=== PATIENT | male | born 1940 | race Caucasian/White ===

== ENCOUNTER 2019-03-11 13:56 | Emergency (ER) | payer MEDICARE ==
[~2019-03-11 13:56] MED LIST: APIX5TAB PO; ATOR40TA71 PO; EZET10TA13 PO; FINA5TAB41 PO; FLUC100T PO; FOLI1TAB82 PO; FURO20TA4 PO; TAMS0.4C32 PO; UBID200C18 PO; VITAMIN D3 PO
[2019-03-11 15:27] LABS: BASOPHILS % (AUTO) 0.5 % (0.0-5.0); EOSINOPHILS % (AUTO) 1.2 % (0.0-8.0); HEMATOCRIT 41.1 % (42-54); LYMPHOCYTES % (AUTO) 19.7 % (21.0-51.0); MEAN CORPUSCULAR HEMOGLOBIN 31.3 pg (27.0-33.0); MEAN CORPUSCULAR HGB CONC 33.1 g/dL (32.0-36.0); MEAN CORPUSCULAR VOLUME 94.7 fL (79-99); MONOCYTES % (AUTO) 6.8 % (3.0-13.0); NEUTROPHILS % (AUTO) 71.6 % (40.0-77.0); PLATELET COUNT (AUTO) 133 K/uL (130-400); RED BLOOD CELL COUNT(AUTO) 4.34 MIL/uL (4.50-6.20); RED CELL DISTRIBUTION WIDTH 13.6 % (11.0-15.5)
[2019-03-11 15:33] LABS: CREATININE 1.9 mg/dL (0.5-1.5); POTASSIUM 4.5 mmol/L (3.5-5.1)
[2019-03-11 15:49] LABS: B-TYPE NATRIURETIC PEPTIDE 250 pg/mL (0-100)
== END 2019-03-11 17:21 | disposition home or self-care (01) ==
LOC: EDH 13:56
DX: R00.8 Other abnormalities of heart beat (principal); I25.10 Atherosclerotic heart disease of native coronary artery without angina pectoris; I10 Essential (primary) hypertension; E78.5 Hyperlipidemia, unspecified; Z90.49 Acquired absence of other specified parts of digestive tract; Z98.890 Other specified postprocedural states
CPT/HCPCS: 36415; 71046; 80048; 82550; 83735; 83880; 84484; 85025; 93005

== ENCOUNTER → 2019-05-03 | Outpatient (CLI) | payer MEDICARE | END | disposition home or self-care (01) | LOC: SHCH 13:29 | PROVIDERS: ATTEND Internal Medicine Cardiovascular Disease | DX: I08.3 Combined rheumatic disorders of mitral, aortic and tricuspid valves (principal); I50.9 Heart failure, unspecified | CPT/HCPCS: 93306; 93356 ==

== ENCOUNTER → 2019-12-27 | Outpatient (CLI) | payer MEDICARE | END | disposition home or self-care (01) | LOC: SLP 20:27 | PROVIDERS: ATTEND Internal Medicine Cardiovascular Disease | DX: G47.33 Obstructive sleep apnea (adult) (pediatric) (principal); R53.82 Chronic fatigue, unspecified | CPT/HCPCS: 95810 ==

== ENCOUNTER → 2020-01-08 | Outpatient (CLI) | payer MEDICARE | END | disposition home or self-care (01) | LOC: SLP 20:27 | PROVIDERS: ATTEND Internal Medicine Cardiovascular Disease | DX: R53.82 Chronic fatigue, unspecified (principal); G47.31 Primary central sleep apnea | CPT/HCPCS: 95811 ==

== ENCOUNTER 2020-06-04 14:25 | Emergency (ER) | payer MEDICARE ==
[2020-06-04] MEDS ORDERED: DIATR MEGLU/DIATRIZOATE SODIUM 30 ML BOTTLE ONE (15:21)
== END 2020-06-04 16:15 | disposition home or self-care (01) ==
LOC: EDH 14:25
DX: K94.23 Gastrostomy malfunction (principal); I11.0 Hypertensive heart disease with heart failure; I50.9 Heart failure, unspecified; E78.5 Hyperlipidemia, unspecified; I25.10 Atherosclerotic heart disease of native coronary artery without angina pectoris; Z90.49 Acquired absence of other specified parts of digestive tract; Z98.890 Other specified postprocedural states; Z87.891 Personal history of nicotine dependence; Z95.810 Presence of automatic (implantable) cardiac defibrillator
CPT/HCPCS: 43762; 74018; 99284; Q9963

== ENCOUNTER 2021-05-22 06:58 | Inpatient (IN) | payer MEDICARE ==
[~2021-05-22] VITALS: Ht 190.5 cm; Wt 86.4 kg
[2021-05-22] MEDS ORDERED: KETOROLAC 30MG VIAL (30MG/ML) ONE (07:23)
[2021-05-22] MEDS ORDERED: 0.9%NACL 1000ML 1,000 ML IV ONE (07:24)
[2021-05-22] MEDS ORDERED: LABETALOL 20MG SYG IV ONE (07:24)
[2021-05-22 07:27] LABS: HEMATOCRIT 43.7 % (42-54); MEAN CORPUSCULAR HEMOGLOBIN 29.8 pg (27.0-33.0); MEAN CORPUSCULAR HGB CONC 32.5 g/dL (32.0-36.0); MEAN CORPUSCULAR VOLUME 91.6 fL (79-99); PLATELET COUNT (AUTO) 115 K/uL (130-400); RED BLOOD CELL COUNT(AUTO) 4.77 MIL/uL (4.50-6.20); RED CELL DISTRIBUTION WIDTH 14.7 % (11.0-15.5); WHITE BLOOD COUNT (AUTO) 10.4 K/uL (4.8-10.8)
[2021-05-22 07:43] LABS: BASOPHILS % (AUTO) 0.4 % (0.0-5.0); EOSINOPHILS % (AUTO) 1.1 % (0.0-8.0); LYMPHOCYTES % (AUTO) 34.7 % (21.0-51.0); MONOCYTES % (AUTO) 6.9 % (3.0-13.0); NEUTROPHILS % (AUTO) 56.5 % (40.0-77.0)
[2021-05-22] MEDS ORDERED: LIDOCAINE HCL 2% JELLY 5 ML ONE (07:43)
[2021-05-22 07:47] LABS: ALBUMIN 4.1 g/dL (3.5-5.0); BILIRUBIN,TOTAL 0.7 mg/dL (0.2-1.0); CREATININE 2.2 mg/dL (0.5-1.5); POTASSIUM 5.2 mmol/L (3.5-5.1); TOTAL PROTEIN, SERUM 7.8 g/dL (6.0-8.3)
[2021-05-22 08:17] LABS: APPEARANCE,URINE TURBID (CLEAR); BILIRUBIN,URINE LARGE (NEGATIVE); COLOR,URINE RED (YELLOW); GLUCOSE, URINE (UA) 500 mg/dL (NEGATIVE); KETONES,URINE >=80 mg/dL (NEGATIVE); LEUKOCYTE ESTERASE ,URINE LARGE (NEGATIVE); NITRATE,URINE POSITIVE (NEGATIVE); OCCULT BLOOD,URINE LARGE (NEGATIVE); PROTEIN,URINE >=300 mg/dL (NEGATIVE); UROBILINOGEN,URINE >=8.0 mg/dL (0.2-1.0)
[2021-05-22 08:27] LABS: BACTERIA,URINE Few /HPF (None Seen); RBC,URINE TNTC /HPF (0-1); SQUAMOUS EPITHELIAL CELL,UR 0-2 /HPF (0-2)
[2021-05-22] MEDS ORDERED: ZOSYN 3.375GM +NS 50ML IV SCH (11:00)
[2021-05-22] MEDS ORDERED: 0.9%NACL 50ML 50 ML IV ONE (11:25)
[2021-05-22 11:26] LABS: HEMATOCRIT 40.6 % (42-54)
[2021-05-22] MEDS ORDERED: ACETAMINOPHEN 325 MG TAB PO PRN (11:30)
[2021-05-22] MEDS ORDERED: ONDANSETRON 4MG INJ IVP PRN (11:30)
[2021-05-22] MEDS ORDERED: CEFTRIAXONE 1G VIAL IVP SCH (11:30)
[2021-05-22 12:53] LABS: CREATININE,URINE RANDOM 29 mg/dL (30-135); SODIUM,URINE RANDOM 91 mmol/l (40-220)
[2021-05-22 13:05] VITALS: BP 137/63
[2021-05-22 15:10] VITALS: BP 124/103
[2021-05-22] MEDS: INSULIN HUMULIN R 100 UNIT/ML 3ML SQ SCH ×2 (16:30→21:00)
[2021-05-22] MEDS ORDERED: SULF1TAB42 PO (18:31)
[2021-05-22] MEDS ORDERED: METO-408 PO (18:31)
[2021-05-22] MEDS ORDERED: SACU1TAB PO (18:31)
[2021-05-22] MEDS ORDERED: ASPI-1443 PO (18:31)
[2021-05-22] MEDS ORDERED: OXYB5TAB15 PO (18:31)
[2021-05-22] MEDS: MORPHINE 2 MG SYG IVP PRN (18:46)
[2021-05-22 19:59] VITALS: BP 152/91
[2021-05-22 20:01] VITALS: BP 172/82
[2021-05-22 23:28] VITALS: BP 116/55
[2021-05-23] MEDS: ZOSYN 3.375GM +NS 50ML IV SCH ×4 (01:31→20:56)
[2021-05-23] MEDS: MORPHINE 2 MG SYG IVP PRN ×2 (01:31→15:33)
[2021-05-23 03:42] VITALS: BP 146/72
[2021-05-23] MEDS: INSULIN HUMULIN R 100 UNIT/ML 3ML SQ SCH ×4 (06:32→20:55)
[2021-05-23 07:59] VITALS: BP 101/51
[2021-05-23] MEDS: METOPROLOL SUCCINATE 50 MG TAB.SR.24H PO SCH ×3 (09:30→20:56)
[2021-05-23] MEDS: SACUBITRIL/VALSARTAN 1 EACH TABLET PO SCH ×2 (09:30→21:30)
[2021-05-23 09:31] LABS: HEMATOCRIT 39.4 % (42-54); MEAN CORPUSCULAR HEMOGLOBIN 30.5 pg (27.0-33.0); MEAN CORPUSCULAR HGB CONC 32.5 g/dL (32.0-36.0); MEAN CORPUSCULAR VOLUME 93.8 fL (79-99); RED BLOOD CELL COUNT(AUTO) 4.2 MIL/uL (4.50-6.20); RED CELL DISTRIBUTION WIDTH 14.8 % (11.0-15.5); WHITE BLOOD COUNT (AUTO) 5.4 K/uL (4.8-10.8)
[2021-05-23 09:56] LABS: CREATININE 2.4 mg/dL (0.5-1.5); POTASSIUM 5.3 mmol/L (3.5-5.1)
[2021-05-23] MEDS: TAMSULOSIN HCL 0.4 MG CAP.ER.24H PO SCH (10:46)
[2021-05-23 12:44] VITALS: BP 173/74
[2021-05-23 16:00] VITALS: BP 137/76
[2021-05-23 16:07] LABS: HEMATOCRIT 41.1 % (42-54)
[2021-05-23] MEDS ORDERED: MORPHINE 2 MG SYG IM ONE (16:30)
[2021-05-23] MEDS ORDERED: MORPHINE 2 MG SYG IVP SCH (16:30)
[2021-05-23 19:45] VITALS: BP 144/64
[2021-05-23 23:53] VITALS: BP 120/72
[2021-05-24 03:42] VITALS: BP 131/65
[2021-05-24] MEDS: MORPHINE 2 MG SYG IVP PRN ×2 (04:23→15:07)
[2021-05-24 04:56] LABS: HEMATOCRIT 38.4 % (42-54); MEAN CORPUSCULAR HEMOGLOBIN 30.1 pg (27.0-33.0); MEAN CORPUSCULAR HGB CONC 32.8 g/dL (32.0-36.0); MEAN CORPUSCULAR VOLUME 91.6 fL (79-99); RED BLOOD CELL COUNT(AUTO) 4.19 MIL/uL (4.50-6.20); RED CELL DISTRIBUTION WIDTH 14.8 % (11.0-15.5); WHITE BLOOD COUNT (AUTO) 8.2 K/uL (4.8-10.8)
[2021-05-24] MEDS: ZOSYN 3.375GM +NS 50ML IV SCH ×3 (05:04→20:56)
[2021-05-24 05:08] LABS: CREATININE 2.1 mg/dL (0.5-1.5); MAGNESIUM 2.1 mg/dL (1.80-2.40)
[2021-05-24] MEDS: INSULIN HUMULIN R 100 UNIT/ML 3ML SQ SCH ×4 (06:42→21:00)
[2021-05-24 08:00] VITALS: BP 117/76
[2021-05-24] MEDS: TAMSULOSIN HCL 0.4 MG CAP.ER.24H PO SCH (08:42)
[2021-05-24] MEDS: SACUBITRIL/VALSARTAN 1 EACH TABLET PO SCH ×2 (08:42→20:56)
[2021-05-24] MEDS: ATORVASTATIN 20 MG TABLET PO SCH (08:42)
[2021-05-24] MEDS: METOPROLOL SUCCINATE 50 MG TAB.SR.24H PO SCH ×2 (08:42→20:57)
[2021-05-24 12:00] VITALS: BP_SYST 148; BP_SYST 161; BP_DIAS 66; BP_DIAS 76
[2021-05-24 16:00] VITALS: BP 98/57
[2021-05-24 20:13] VITALS: BP 116/52
[2021-05-24 23:44] VITALS: BP 130/60
[2021-05-25 03:31] VITALS: BP 139/69
[2021-05-25 04:57] LABS: HEMATOCRIT 38.9 % (42-54); MEAN CORPUSCULAR HEMOGLOBIN 30.3 pg (27.0-33.0); MEAN CORPUSCULAR HGB CONC 32.4 g/dL (32.0-36.0); MEAN CORPUSCULAR VOLUME 93.5 fL (79-99); RED BLOOD CELL COUNT(AUTO) 4.16 MIL/uL (4.50-6.20); RED CELL DISTRIBUTION WIDTH 15.1 % (11.0-15.5); WHITE BLOOD COUNT (AUTO) 6.7 K/uL (4.8-10.8)
[2021-05-25 05:03] LABS: CREATININE 2.1 mg/dL (0.5-1.5); POTASSIUM 5.2 mmol/L (3.5-5.1)
[2021-05-25] MEDS: ZOSYN 3.375GM +NS 50ML IV SCH ×2 (05:31→13:26)
[2021-05-25] MEDS: INSULIN HUMULIN R 100 UNIT/ML 3ML SQ SCH ×2 (06:35→10:48)
[2021-05-25 07:37] VITALS: BP 154/77
[2021-05-25] MEDS: ATORVASTATIN 20 MG TABLET PO SCH (08:33)
[2021-05-25] MEDS: SACUBITRIL/VALSARTAN 1 EACH TABLET PO SCH (08:33)
[2021-05-25] MEDS: METOPROLOL SUCCINATE 50 MG TAB.SR.24H PO SCH (08:33)
[2021-05-25] MEDS: TAMSULOSIN HCL 0.4 MG CAP.ER.24H PO SCH (08:33)
[2021-05-25] MEDS ORDERED: KAYEXALATE 15GM/60ML PO ONE (09:30)
[2021-05-25 10:47] VITALS: BP 136/81
[2021-05-25] MEDS ORDERED: ATORVASTATIN 20 MG TABLET PO SCH (21:00)
[2021-05-25] MEDS ORDERED: SACUBITRIL/VALSARTAN 1 EACH TABLET PO SCH (21:00)
[2021-05-25] MEDS ORDERED: TAMSULOSIN HCL 0.4 MG CAP.ER.24H PO SCH (21:00)
[2021-05-25] MEDS ORDERED: METOPROLOL SUCCINATE 50 MG TAB.SR.24H PO SCH (21:00)
[2021-05-26] MEDS ORDERED: ASPIRIN 81 MG EC TAB PO SCH (09:00)
[2021-05-26] MEDS ORDERED: EZETIMIBE 10 MG TAB PO SCH (09:00)
[2021-05-26] MEDS ORDERED: Vitamin B Complex/Vit C/Folic Acid PO SCH (09:00)
[2021-05-26] MEDS ORDERED: OXYBUTYNIN CHLORIDE 5 MG TABLET PO SCH (09:00)
== END 2021-05-25 17:00 | disposition home or self-care (01) | DRG 690 ==
LOC: EDH 06:58 → EDHIP 10:42 → 3AH 13:02
PROVIDERS: ADMIT Internal Medicine Infectious Disease; ATTEND Internal Medicine Infectious Disease
DX: N39.0 Urinary tract infection, site not specified (principal); I16.1 Hypertensive emergency; I50.22 Chronic systolic (congestive) heart failure; E87.1 Hypo-osmolality and hyponatremia; I13.0 Hypertensive heart and chronic kidney disease with heart failure and stage 1 through stage 4 chronic kidney disease, or unspecified chronic kidney disease; N18.4 Chronic kidney disease, stage 4 (severe); R31.0 Gross hematuria; I25.5 Ischemic cardiomyopathy; E78.5 Hyperlipidemia, unspecified; N26.1 Atrophy of kidney (terminal); K21.9 Gastro-esophageal reflux disease without esophagitis; I48.91 Unspecified atrial fibrillation; I25.10 Atherosclerotic heart disease of native coronary artery without angina pectoris; I73.9 Peripheral vascular disease, unspecified; N40.0 Benign prostatic hyperplasia without lower urinary tract symptoms; M51.36 Other intervertebral disc degeneration, lumbar region; K80.20 Calculus of gallbladder without cholecystitis without obstruction; I71.4 Abdominal aortic aneurysm, without rupture; K59.00 Constipation, unspecified; K57.90 Diverticulosis of intestine, part unspecified, without perforation or abscess without bleeding; I72.3 Aneurysm of iliac artery; E87.5 Hyperkalemia; E78.00 Pure hypercholesterolemia, unspecified; Z79.82 Long term (current) use of aspirin; I25.2 Old myocardial infarction; Z87.440 Personal history of urinary (tract) infections; Z87.891 Personal history of nicotine dependence; Z95.1 Presence of aortocoronary bypass graft; Z95.0 Presence of cardiac pacemaker; Z95.5 Presence of coronary angioplasty implant and graft; Z85.820 Personal history of malignant melanoma of skin; Z86.79 Personal history of other diseases of the circulatory system; Z87.19 Personal history of other diseases of the digestive system; Z86.73 Personal history of transient ischemic attack (TIA), and cerebral infarction without residual deficits
CPT/HCPCS: 36415; 74018; 74176; 80048; 80053; 81001; 82570; 82948; 83735; 84300; 85014; 85018; 85025; 85027; 86850; 86900; 86901; 87088; 93005; 99291; G0378; J0696; J1885; J2543; J7030

== ENCOUNTER 2021-12-28 10:08 | Emergency (ER) | payer MEDICARE ==
[~2021-12-28] VITALS: Ht 190.5 cm; Wt 94.8 kg
[~2021-12-28 10:08] MED LIST changes: -APIX5TAB PO; +ASPI-1443 PO; -FINA5TAB41 PO; -FLUC100T PO; -FURO20TA4 PO; +METO-408 PO; +OXYB5TAB15 PO; +SACU1TAB PO; -UBID200C18 PO; -VITAMIN D3 PO
[2021-12-28 11:08] VITALS: BP 139/57
[2021-12-28 11:35] LABS: BASOPHILS % (AUTO) 0.2 % (0.0-5.0); EOSINOPHILS % (AUTO) 0.2 % (0.0-8.0); HEMATOCRIT 29.4 % (42-54); MEAN CORPUSCULAR HEMOGLOBIN 31.4 pg (27.0-33.0); MEAN CORPUSCULAR VOLUME 95.1 fL (79-99); MONOCYTES % (AUTO) 3.4 % (3.0-13.0); NEUTROPHILS % (AUTO) 87.2 % (40.0-77.0); PLATELET COUNT (AUTO) 126 K/uL (130-400); RED BLOOD CELL COUNT(AUTO) 3.09 MIL/uL (4.50-6.20); RED CELL DISTRIBUTION WIDTH 15.6 % (11.0-15.5); WHITE BLOOD COUNT (AUTO) 10.2 K/uL (4.8-10.8)
[2021-12-28 11:40] LABS: CREATININE 1.8 mg/dL (0.5-1.5); POTASSIUM 4.3 mmol/L (3.5-5.1)
[2021-12-28 11:45] LABS: ALBUMIN 3.2 g/dL (3.5-5.0)
[2021-12-28 12:08] LABS: INR 1.24 (0.85-1.15); PROTHROMBIN TIME 13.4 SEC (9.6-11.6)
[2021-12-28 12:09] LABS: PARTIAL THROMBOPLASTIN TIME 22.7 SEC (26.3-35.5)
== END 2021-12-28 12:31 | disposition home or self-care (01) ==
LOC: EDH 10:08
DX: S80.12XA Contusion of left lower leg, initial encounter (principal); E78.00 Pure hypercholesterolemia, unspecified; I10 Essential (primary) hypertension; I25.2 Old myocardial infarction; Z90.89 Acquired absence of other organs; Z98.890 Other specified postprocedural states; Z79.899 Other long term (current) drug therapy; Z79.82 Long term (current) use of aspirin; W22.8XXA Striking against or struck by other objects, initial encounter; Y93.89 Activity, other specified; Y92.89 Other specified places as the place of occurrence of the external cause; Y99.8 Other external cause status
CPT/HCPCS: 36415; 73700; 80053; 85025; 85610; 85730

== ENCOUNTER 2021-12-31 10:51 | Emergency (ER) | payer MEDICARE ==
[2021-12-31] MEDS ORDERED: HYDROCODONE/ACETAMINOPHEN 10/325 MG TAB PO ONE (11:30)
[2021-12-31] MEDS ORDERED: TRAM1TAB2 PO (12:02)
[2021-12-31 12:08] VITALS: BP 135/91
== END 2021-12-31 12:17 | disposition home or self-care (01) ==
LOC: EDH 10:51
DX: S80.12XA Contusion of left lower leg, initial encounter (principal); I10 Essential (primary) hypertension; Z86.73 Personal history of transient ischemic attack (TIA), and cerebral infarction without residual deficits; Z79.82 Long term (current) use of aspirin; Z79.899 Other long term (current) drug therapy; Z98.890 Other specified postprocedural states; W22.8XXA Striking against or struck by other objects, initial encounter; Y93.89 Activity, other specified; Y92.89 Other specified places as the place of occurrence of the external cause; Y99.8 Other external cause status
CPT/HCPCS: 93971

== ENCOUNTER 2022-01-03 10:54 | Inpatient (IN) | payer MEDICARE ==
[~2022-01-03] VITALS: Ht 190.5 cm; Wt 90.7 kg
[~2022-01-03 10:54] MED LIST changes: -ALLO100T PO; -LIDOCAINE HCL 4% LTA SOL 4 ML VIAL TP ONE; -PRED20TA3 PO
[2022-01-03] MEDS ORDERED: BENZONATATE 100 MG CAPSULE PO PRN (11:30)
[2022-01-03] MEDS ORDERED: CEPHALEXIN 500 MG CAPSULE PO SCH (11:30)
[2022-01-03] MEDS ORDERED: MULTIVITAMIN WITH MINERALS TABLET PO SCH (11:30)
[2022-01-03 11:55] LABS: BASOPHILS % (AUTO) 0.1 % (0.0-5.0); EOSINOPHILS % (AUTO) 0.1 % (0.0-8.0); HEMATOCRIT 30.2 % (42-54); MEAN CORPUSCULAR HEMOGLOBIN 31.5 pg (27.0-33.0); MEAN CORPUSCULAR HGB CONC 32.1 g/dL (32.0-36.0); MEAN CORPUSCULAR VOLUME 98.1 fL (79-99); MONOCYTES % (AUTO) 1.9 % (3.0-13.0); NEUTROPHILS % (AUTO) 93.5 % (40.0-77.0); PLATELET COUNT (AUTO) 124 K/uL (130-400); RED BLOOD CELL COUNT(AUTO) 3.08 MIL/uL (4.50-6.20); RED CELL DISTRIBUTION WIDTH 16.8 % (11.0-15.5); WHITE BLOOD COUNT (AUTO) 9.9 K/uL (4.8-10.8)
[2022-01-03 12:02] LABS: CREATININE 1.7 mg/dL (0.5-1.5); POTASSIUM 5.1 mmol/L (3.5-5.1)
[2022-01-03 12:05] LABS: INR 1.13 (0.85-1.15); PROTHROMBIN TIME 12.2 SEC (9.6-11.6)
[2022-01-03 12:06] LABS: PARTIAL THROMBOPLASTIN TIME 23.9 SEC (26.3-35.5)
[2022-01-03 12:07] LABS: ALBUMIN 3.1 g/dL (3.5-5.0); TOTAL PROTEIN, SERUM 6.6 g/dL (6.0-8.3)
[2022-01-03] MEDS ORDERED: VANCOMYCIN PROTOCOL PER PHARMACY IV SCH (16:00)
[2022-01-03 16:40] VITALS: BP 141/78
[2022-01-03] MEDS: CEFEPIME HCL 1 GM VIAL IVP SCH (18:20)
[2022-01-03 20:00] VITALS: BP 131/61
[2022-01-03] MEDS: ATORVASTATIN 40 MG TABLET PO SCH (20:52)
[2022-01-03] MEDS: SACUBITRIL/VALSARTAN 1 EACH TABLET PO SCH (20:52)
[2022-01-04] VITALS (7 sets, daily range): BP systolic 124–156; BP diastolic 46–83
[2022-01-04] MEDS: CEFEPIME HCL 1 GM VIAL IVP SCH ×4 (01:39→23:43)
[2022-01-04 05:18] LABS: BASOPHILS % (AUTO) 0.2 % (0.0-5.0); HEMATOCRIT 26.6 % (42-54); LYMPHOCYTES % (AUTO) 12.8 % (21.0-51.0); MEAN CORPUSCULAR HEMOGLOBIN 31.7 pg (27.0-33.0); MEAN CORPUSCULAR HGB CONC 33.1 g/dL (32.0-36.0); MEAN CORPUSCULAR VOLUME 95.7 fL (79-99); MONOCYTES % (AUTO) 6.5 % (3.0-13.0); NEUTROPHILS % (AUTO) 79.1 % (40.0-77.0); PLATELET COUNT (AUTO) 123 K/uL (130-400); RED BLOOD CELL COUNT(AUTO) 2.78 MIL/uL (4.50-6.20); RED CELL DISTRIBUTION WIDTH 16.5 % (11.0-15.5); WHITE BLOOD COUNT (AUTO) 8.4 K/uL (4.8-10.8)
[2022-01-04 05:32] LABS: INR 1.17 (0.85-1.15); PROTHROMBIN TIME 12.6 SEC (9.6-11.6)
[2022-01-04 05:33] LABS: PARTIAL THROMBOPLASTIN TIME 25.4 SEC (26.3-35.5)
[2022-01-04] MEDS: MORPHINE 2 MG SYG IVP PRN (07:37)
[2022-01-04] MEDS: PREDNISONE 20 MG TABLET PO SCH (08:41)
[2022-01-04] MEDS: SACUBITRIL/VALSARTAN 1 EACH TABLET PO SCH ×2 (08:41→20:33)
[2022-01-04] MEDS: METOPROLOL SUCCINATE 25 MG TAB.SR.24H PO SCH (08:41)
[2022-01-04] MEDS: ALLOPURINOL 100 MG TABLET PO SCH (08:41)
[2022-01-04] MEDS ORDERED: FOLI1TAB82 PO (09:48)
[2022-01-04] MEDS ORDERED: SACU1TAB PO (09:48)
[2022-01-04] MEDS ORDERED: PRED20TA3 PO (09:48)
[2022-01-04] MEDS ORDERED: ALLO100T PO (09:48)
[2022-01-04] MEDS ORDERED: METO-408 PO (09:48)
[2022-01-04] MEDS ORDERED: COMPOUND IV REFRIGERATED 1 EACH IVSOLN MISC PRN (10:30)
[2022-01-04] MEDS: VANCOMYCIN 1.5 GM/250 ML BAG 250 ML IV SCH (11:07)
[2022-01-04] MEDS ORDERED: PHARMACY COMMUNICATION MISC SCH (20:30)
[2022-01-04] MEDS: TAMSULOSIN HCL 0.4 MG CAP.ER.24H PO SCH (20:33)
[2022-01-04] MEDS: ATORVASTATIN 40 MG TABLET PO SCH (20:33)
[2022-01-05] VITALS (7 sets, daily range): BP systolic 127–158; BP diastolic 59–80
[2022-01-05] MEDS: SACUBITRIL/VALSARTAN 1 EACH TABLET PO SCH ×2 (08:37→21:07)
[2022-01-05] MEDS: METOPROLOL SUCCINATE 25 MG TAB.SR.24H PO SCH (08:37)
[2022-01-05] MEDS: PREDNISONE 20 MG TABLET PO SCH (08:37)
[2022-01-05] MEDS: CEFEPIME HCL 1 GM VIAL IVP SCH ×2 (08:37→16:31)
[2022-01-05] MEDS: ALLOPURINOL 100 MG TABLET PO SCH (08:37)
[2022-01-05] MEDS: ENOXAPARIN SODIUM 30 MG/0.3 ML SQ SCH (08:38)
[2022-01-05] MEDS: VANCOMYCIN 1.5 GM/250 ML BAG 250 ML IV SCH (10:07)
[2022-01-05] MEDS: MORPHINE 2 MG SYG IVP PRN ×2 (11:31→22:20)
[2022-01-05] MEDS ORDERED: LACTULOSE 20 GM/30 ML UDCUP PO SCH (19:30)
[2022-01-05] MEDS: ATORVASTATIN 40 MG TABLET PO SCH (21:05)
[2022-01-05] MEDS: TAMSULOSIN HCL 0.4 MG CAP.ER.24H PO SCH (21:05)
[2022-01-06] VITALS (25 sets, daily range): BP systolic 107–158; BP diastolic 34–101
[2022-01-06] MEDS: CEFEPIME HCL 1 GM VIAL IVP SCH ×4 (00:09→23:33)
[2022-01-06] MEDS: MORPHINE 2 MG SYG IVP PRN ×2 (04:31→22:41)
[2022-01-06 05:04] LABS: HEMATOCRIT 28.7 % (42-54); MEAN CORPUSCULAR HEMOGLOBIN 31.4 pg (27.0-33.0); MEAN CORPUSCULAR HGB CONC 33.1 g/dL (32.0-36.0); MEAN CORPUSCULAR VOLUME 94.7 fL (79-99); RED BLOOD CELL COUNT(AUTO) 3.03 MIL/uL (4.50-6.20); RED CELL DISTRIBUTION WIDTH 16.4 % (11.0-15.5); WHITE BLOOD COUNT (AUTO) 9.2 K/uL (4.8-10.8)
[2022-01-06 05:17] LABS: CREATININE 1.5 mg/dL (0.5-1.5); POTASSIUM 4.1 mmol/L (3.5-5.1)
[2022-01-06] MEDS: ENOXAPARIN SODIUM 30 MG/0.3 ML SQ SCH (09:00)
[2022-01-06] MEDS: PREDNISONE 20 MG TABLET PO SCH (09:00)
[2022-01-06] MEDS: ALLOPURINOL 100 MG TABLET PO SCH (09:00)
[2022-01-06] MEDS: METOPROLOL SUCCINATE 25 MG TAB.SR.24H PO SCH (09:27)
[2022-01-06] MEDS: SACUBITRIL/VALSARTAN 1 EACH TABLET PO SCH ×2 (09:27→20:52)
[2022-01-06] MEDS: VANCOMYCIN 1.5 GM/250 ML BAG 250 ML IV SCH (09:32)
[2022-01-06] MEDS ORDERED: KETAMINE 50MG/ML SYRINGE 50 MG/ML DISP.SYRIN IV ONE (10:19)
[2022-01-06] MEDS ORDERED: MIDAZOLAM HCL 1 MG/ML 2ML VIAL ONE (10:58)
[2022-01-06] MEDS ORDERED: FENTANYL CITRATE PF 50 MCG/1 ML 2ML VIAL ONE ×2 (10:58→12:16)
[2022-01-06] MEDS ORDERED: PROPOFOL 10 MG/ML 20ML VIAL IV ONE (11:05)
[2022-01-06] MEDS: ATORVASTATIN 40 MG TABLET PO SCH (20:30)
[2022-01-06] MEDS: TAMSULOSIN HCL 0.4 MG CAP.ER.24H PO SCH (20:30)
[2022-01-06] MEDS: HYDROCODONE/ACETAMINOPHEN 5/325 MG TAB PO PRN (20:31)
[2022-01-07 03:49] VITALS: BP 119/63
[2022-01-07] MEDS: HYDROCODONE/ACETAMINOPHEN 5/325 MG TAB PO PRN (05:33)
[2022-01-07 07:57] VITALS: BP 117/77
[2022-01-07] MEDS: ALLOPURINOL 100 MG TABLET PO SCH (09:50)
[2022-01-07] MEDS: PREDNISONE 20 MG TABLET PO SCH (09:53)
[2022-01-07] MEDS: SACUBITRIL/VALSARTAN 1 EACH TABLET PO SCH ×2 (09:53→20:04)
[2022-01-07] MEDS: CEFEPIME HCL 1 GM VIAL IVP SCH ×3 (09:53→23:17)
[2022-01-07] MEDS: METOPROLOL SUCCINATE 25 MG TAB.SR.24H PO SCH (09:53)
[2022-01-07 11:35] VITALS: BP 97/54
[2022-01-07] MEDS: VANCOMYCIN 1.5 GM/250 ML BAG 250 ML IV SCH (12:37)
[2022-01-07] MEDS: ENOXAPARIN SODIUM 30 MG/0.3 ML SQ SCH (12:38)
[2022-01-07] MEDS: MORPHINE 2 MG SYG IVP PRN ×2 (15:19→23:18)
[2022-01-07] MEDS ORDERED: MORPHINE 2 MG SYG IVP SCH (15:30)
[2022-01-07 16:00] VITALS: BP 110/64
[2022-01-07] MEDS: TAMSULOSIN HCL 0.4 MG CAP.ER.24H PO SCH (20:04)
[2022-01-07] MEDS: ATORVASTATIN 40 MG TABLET PO SCH (20:04)
[2022-01-07 20:08] VITALS: BP 123/64
[2022-01-08] VITALS: BP 127/66
[2022-01-08 04:00] VITALS: BP 119/80
[2022-01-08 08:00] VITALS: BP 18/60
[2022-01-08 08:13] LABS: HEMATOCRIT 28.7 % (42-54); MEAN CORPUSCULAR HEMOGLOBIN 31.5 pg (27.0-33.0); MEAN CORPUSCULAR HGB CONC 32.8 g/dL (32.0-36.0); MEAN CORPUSCULAR VOLUME 96.3 fL (79-99); RED BLOOD CELL COUNT(AUTO) 2.98 MIL/uL (4.50-6.20); RED CELL DISTRIBUTION WIDTH 15.8 % (11.0-15.5); WHITE BLOOD COUNT (AUTO) 8.9 K/uL (4.8-10.8)
[2022-01-08] MEDS: ALLOPURINOL 100 MG TABLET PO SCH (08:24)
[2022-01-08] MEDS: SACUBITRIL/VALSARTAN 1 EACH TABLET PO SCH ×2 (08:24→20:09)
[2022-01-08] MEDS: PREDNISONE 20 MG TABLET PO SCH (08:24)
[2022-01-08] MEDS: CEFEPIME HCL 1 GM VIAL IVP SCH ×2 (08:24→17:08)
[2022-01-08] MEDS: METOPROLOL SUCCINATE 25 MG TAB.SR.24H PO SCH (08:24)
[2022-01-08] MEDS: ENOXAPARIN SODIUM 30 MG/0.3 ML SQ SCH (08:25)
[2022-01-08 08:29] LABS: CREATININE 1.6 mg/dL (0.5-1.5); POTASSIUM 4.7 mmol/L (3.5-5.1)
[2022-01-08] MEDS: MORPHINE 2 MG SYG IVP PRN ×2 (10:16→18:32)
[2022-01-08] MEDS: VANCOMYCIN 1.5 GM/250 ML BAG 250 ML IV SCH (10:23)
[2022-01-08 12:00] VITALS: BP 97/50
[2022-01-08 16:00] VITALS: BP 115/60
[2022-01-08 19:00] VITALS: BP 115/58
[2022-01-08] MEDS: ATORVASTATIN 40 MG TABLET PO SCH (20:09)
[2022-01-08] MEDS: TAMSULOSIN HCL 0.4 MG CAP.ER.24H PO SCH (20:09)
[2022-01-09] VITALS (7 sets, daily range): BP systolic 113–146; BP diastolic 56–76
[2022-01-09] MEDS: CEFEPIME HCL 1 GM VIAL IVP SCH ×3 (00:14→16:52)
[2022-01-09] MEDS: MORPHINE 2 MG SYG IVP PRN ×3 (02:54→22:22)
[2022-01-09 05:25] LABS: HEMATOCRIT 27.8 % (42-54); MEAN CORPUSCULAR HEMOGLOBIN 30.6 pg (27.0-33.0); MEAN CORPUSCULAR VOLUME 95.5 fL (79-99); RED BLOOD CELL COUNT(AUTO) 2.91 MIL/uL (4.50-6.20); RED CELL DISTRIBUTION WIDTH 15.9 % (11.0-15.5); WHITE BLOOD COUNT (AUTO) 8.3 K/uL (4.8-10.8)
[2022-01-09 05:46] LABS: CREATININE 1.4 mg/dL (0.5-1.5); POTASSIUM 4.1 mmol/L (3.5-5.1)
[2022-01-09] MEDS: PREDNISONE 20 MG TABLET PO SCH (09:35)
[2022-01-09] MEDS: SACUBITRIL/VALSARTAN 1 EACH TABLET PO SCH ×2 (09:36→21:32)
[2022-01-09] MEDS: ALLOPURINOL 100 MG TABLET PO SCH (09:36)
[2022-01-09] MEDS: METOPROLOL SUCCINATE 25 MG TAB.SR.24H PO SCH (09:36)
[2022-01-09] MEDS: ENOXAPARIN SODIUM 30 MG/0.3 ML SQ SCH (09:37)
[2022-01-09] MEDS: VANCOMYCIN 1.5 GM/250 ML BAG 250 ML IV SCH (11:24)
[2022-01-09] MEDS ORDERED: HYDROCODONE/ACETAMINOPHEN 5/325 MG TAB PO SCH (11:30)
[2022-01-09] MEDS: TAMSULOSIN HCL 0.4 MG CAP.ER.24H PO SCH (21:32)
[2022-01-09] MEDS: ATORVASTATIN 40 MG TABLET PO SCH (21:32)
[2022-01-10] VITALS (15 sets, daily range): BP systolic 103–145; BP diastolic 48–77
[2022-01-10] MEDS: CEFEPIME HCL 1 GM VIAL IVP SCH ×3 (01:55→15:35)
[2022-01-10 05:38] LABS: HEMATOCRIT 26.3 % (42-54); MEAN CORPUSCULAR HGB CONC 32.7 g/dL (32.0-36.0); MEAN CORPUSCULAR VOLUME 94.9 fL (79-99); RED BLOOD CELL COUNT(AUTO) 2.77 MIL/uL (4.50-6.20); RED CELL DISTRIBUTION WIDTH 15.8 % (11.0-15.5); WHITE BLOOD COUNT (AUTO) 8.9 K/uL (4.8-10.8)
[2022-01-10 05:46] LABS: CREATININE 1.5 mg/dL (0.5-1.5); MAGNESIUM 1.9 mg/dL (1.80-2.40); POTASSIUM 4.2 mmol/L (3.5-5.1)
[2022-01-10] MEDS: PREDNISONE 20 MG TABLET PO SCH (07:15)
[2022-01-10] MEDS: ALLOPURINOL 100 MG TABLET PO SCH (07:16)
[2022-01-10] MEDS: SACUBITRIL/VALSARTAN 1 EACH TABLET PO SCH ×2 (07:16→20:43)
[2022-01-10] MEDS: ENOXAPARIN SODIUM 30 MG/0.3 ML SQ SCH (07:16)
[2022-01-10] MEDS: METOPROLOL SUCCINATE 25 MG TAB.SR.24H PO SCH (08:07)
[2022-01-10] MEDS: VANCOMYCIN 1.5 GM/250 ML BAG 250 ML IV SCH (11:14)
[2022-01-10] MEDS ORDERED: LIDOCAINE PF 100MG/5ML (2%) SYRINGE 5ML ONE (13:41)
[2022-01-10] MEDS ORDERED: SUCCINYLCHOLINE CHLORIDE 20 MG/ML 10 ML VIAL ONE (13:41)
[2022-01-10] MEDS ORDERED: DEXAMETHASONE SOD PHOSPHATE 10MG/ML 1ML VIAL ONE (13:42)
[2022-01-10] MEDS ORDERED: MIDAZOLAM HCL 1 MG/ML 2ML VIAL ONE (13:42)
[2022-01-10] MEDS ORDERED: PROPOFOL 10 MG/ML 20ML VIAL IV ONE (13:42)
[2022-01-10] MEDS ORDERED: GLYCOPYRROLATE 1 MG/5 ML SYRINGE ONE (13:42)
[2022-01-10] MEDS ORDERED: NEOSTIGMINE 5MG/5ML SYR IV ONE (13:43)
[2022-01-10] MEDS ORDERED: ONDANSETRON 4MG INJ ONE (13:43)
[2022-01-10] MEDS ORDERED: ROCURONIUM 10MG/1ML SYR 10 MG/ML ML ONE ×2 (13:44→15:42)
[2022-01-10] MEDS ORDERED: FENTANYL CITRATE PF 50 MCG/1 ML 2ML VIAL ONE (13:44)
[2022-01-10] MEDS: TAMSULOSIN HCL 0.4 MG CAP.ER.24H PO SCH (20:43)
[2022-01-10] MEDS: MORPHINE 2 MG SYG IVP PRN (20:43)
[2022-01-10] MEDS: ATORVASTATIN 40 MG TABLET PO SCH (20:43)
[2022-01-11] MEDS: CEFEPIME HCL 1 GM VIAL IVP SCH ×3 (00:17→16:00)
[2022-01-11] MEDS: HYDROCODONE/ACETAMINOPHEN 5/325 MG TAB PO PRN (00:17)
[2022-01-11 04:36] VITALS: BP 148/85
[2022-01-11 07:30] VITALS: BP 121/78
[2022-01-11] MEDS: ALLOPURINOL 100 MG TABLET PO SCH (08:58)
[2022-01-11] MEDS: METOPROLOL SUCCINATE 25 MG TAB.SR.24H PO SCH (08:58)
[2022-01-11] MEDS: ENOXAPARIN SODIUM 30 MG/0.3 ML SQ SCH (08:58)
[2022-01-11] MEDS: PREDNISONE 20 MG TABLET PO SCH (08:58)
[2022-01-11] MEDS: SACUBITRIL/VALSARTAN 1 EACH TABLET PO SCH ×2 (08:58→20:24)
[2022-01-11] MEDS: VANCOMYCIN 1.5 GM/250 ML BAG 250 ML IV SCH (11:54)
[2022-01-11 12:00] VITALS: BP 121/69
[2022-01-11 16:00] VITALS: BP 153/92
[2022-01-11 20:00] VITALS: BP 110/62
[2022-01-11] MEDS: TAMSULOSIN HCL 0.4 MG CAP.ER.24H PO SCH (20:24)
[2022-01-11] MEDS: ATORVASTATIN 40 MG TABLET PO SCH (20:24)
[2022-01-11] MEDS ORDERED: VANCOMYCIN 1G/250ML KIT 250 ML IV SCH (21:00)
== END 2022-01-11 23:15 | DRG 605 ==
LOC: EDH 10:54 → EDHIP 11:26 → 3BH 16:40
PROVIDERS: ADMIT Internal Medicine Infectious Disease; ATTEND Internal Medicine Infectious Disease
PROC: 0J9P0ZZ Drainage of Left Lower Leg Subcutaneous Tissue and Fascia, Open Approach (ICD-10-PCS; principal; 2022-01-09)
PROC: 0HQLXZZ Repair Left Lower Leg Skin, External Approach (ICD-10-PCS; 2022-01-10)
DX: S80.12XA Contusion of left lower leg, initial encounter (principal); L03.116 Cellulitis of left lower limb; I13.0 Hypertensive heart and chronic kidney disease with heart failure and stage 1 through stage 4 chronic kidney disease, or unspecified chronic kidney disease; I50.22 Chronic systolic (congestive) heart failure; Z20.822 Contact with and (suspected) exposure to COVID-19; I25.10 Atherosclerotic heart disease of native coronary artery without angina pectoris; D69.6 Thrombocytopenia, unspecified; N18.9 Chronic kidney disease, unspecified; D64.9 Anemia, unspecified; X58.XXXA Exposure to other specified factors, initial encounter; E78.5 Hyperlipidemia, unspecified; I25.2 Old myocardial infarction; Z79.82 Long term (current) use of aspirin; Z90.5 Acquired absence of kidney; Z95.1 Presence of aortocoronary bypass graft; Z95.5 Presence of coronary angioplasty implant and graft; Y93.89 Activity, other specified; Y92.89 Other specified places as the place of occurrence of the external cause; Y99.8 Other external cause status
CPT/HCPCS: 36415; 73700; 80048; 80053; 80202; 82948; 83735; 85025; 85027; 85610; 85730; 87070; 87076; 87205; 87635; 93971; 97039; A4450; G0378; G0463; J0330; J0692; J1100; J1650; J2001; J2250; J2405; J2704; J2710; J3010; J3490; J7030; J7120; L3260

== ENCOUNTER → 2022-01-03 | Outpatient (CLI) | payer MEDICARE ==
[~2022-01-03] MED LIST changes: +ALLO100T PO; +LIDOCAINE HCL 4% LTA SOL 4 ML VIAL TP ONE; +PRED20TA3 PO; +TRAM1TAB2 PO
== END | disposition home or self-care (01) ==
LOC: WHH 08:28
PROVIDERS: ATTEND Family Medicine
DX: S81.802A Unspecified open wound, left lower leg, initial encounter (principal); S80.12XA Contusion of left lower leg, initial encounter; I13.0 Hypertensive heart and chronic kidney disease with heart failure and stage 1 through stage 4 chronic kidney disease, or unspecified chronic kidney disease; N18.9 Chronic kidney disease, unspecified; I50.22 Chronic systolic (congestive) heart failure; E78.00 Pure hypercholesterolemia, unspecified; I25.2 Old myocardial infarction; E78.5 Hyperlipidemia, unspecified; I25.10 Atherosclerotic heart disease of native coronary artery without angina pectoris; M10.9 Gout, unspecified; Z79.82 Long term (current) use of aspirin; Z79.899 Other long term (current) drug therapy; Z95.1 Presence of aortocoronary bypass graft; Z86.73 Personal history of transient ischemic attack (TIA), and cerebral infarction without residual deficits; W22.8XXA Striking against or struck by other objects, initial encounter; Y93.89 Activity, other specified; Y92.89 Other specified places as the place of occurrence of the external cause; Y99.8 Other external cause status
CPT/HCPCS: G0463; A4450; L3260

== ENCOUNTER → 2022-04-18 | Outpatient (CLI) | payer MEDICARE ==
[~2022-04-18] MED LIST changes: +ALLO100T PO; -OXYB5TAB15 PO; +PRED20TA3 PO
[2022-04-18 12:54] LABS: CREATININE 1.8 mg/dL (0.5-1.5); POTASSIUM 3.9 mmol/L (3.5-5.1)
== END | disposition home or self-care (01) ==
LOC: LAB 11:22
PROVIDERS: ATTEND Internal Medicine Cardiovascular Disease
DX: I50.22 Chronic systolic (congestive) heart failure (principal)
CPT/HCPCS: 36415; 80048; 83880

== ENCOUNTER → 2022-05-30 | Outpatient (CLI) | payer MEDICARE | END | disposition home or self-care (01) | LOC: RAH 14:21 | PROVIDERS: ATTEND Internal Medicine Cardiovascular Disease | DX: I71.40 Abdominal aortic aneurysm, without rupture, unspecified (principal); I72.3 Aneurysm of iliac artery; K80.20 Calculus of gallbladder without cholecystitis without obstruction | CPT/HCPCS: 74176 ==

== ENCOUNTER → 2023-02-06 | Outpatient (CLI) | payer MEDICARE ==
[~2023-02-06] MED LIST changes: -EZET10TA13 PO; +EZET10TA81 PO
[2023-02-06 12:21] LABS: BASOPHILS # (AUTO) 0.03 K/uL (0.00-0.20); BASOPHILS % (AUTO) 0.4 % (0.0-5.0); EOSINOPHILS # (AUTO) 0.14 K/uL (0.00-0.70); EOSINOPHILS % (AUTO) 1.9 % (0.0-8.0); HEMATOCRIT 44.8 % (42-54); IMMATURE GRANULOCYTE ABSOLUTE 0.03 K/uL (0-1); LYMPHOCYTES # (AUTO) 1.7 K/uL (1.0-4.8); LYMPHOCYTES % (AUTO) 22.6 % (21.0-51.0); MEAN CORPUSCULAR HEMOGLOBIN 32.4 pg (27.0-33.0); MEAN CORPUSCULAR HGB CONC 32.4 g/dL (32.0-36.0); MEAN CORPUSCULAR VOLUME 100.2 fL (79-99); MONOCYTES # (AUTO) 0.4 K/uL (0.1-1.0); MONOCYTES % (AUTO) 5.4 % (3.0-13.0); NEUTROPHILS # (AUTO) 5.1 K/uL (1.8-7.7); NEUTROPHILS % (AUTO) 69.3 % (40.0-77.0); PLATELET COUNT (AUTO) 119 K/uL (130-400); RED BLOOD CELL COUNT(AUTO) 4.47 MIL/uL (4.50-6.20); RED CELL DISTRIBUTION WIDTH 15.4 % (11.0-15.5); WHITE BLOOD COUNT (AUTO) 7.4 K/uL (4.8-10.8)
[2023-02-06 12:47] LABS: ALBUMIN 3.6 g/dL (3.5-5.0); BILIRUBIN,TOTAL 0.7 mg/dL (0.2-1.0); CREATININE 2.1 mg/dL (0.5-1.5); THYROID STIMULATING HORMONE 2.6 uIU/mL (0.36-3.74); TOTAL PROTEIN, SERUM 6.9 g/dL (6.0-8.3)
== END | disposition home or self-care (01) ==
LOC: LAB 09:36
PROVIDERS: ATTEND Internal Medicine Cardiovascular Disease
DX: I50.22 Chronic systolic (congestive) heart failure (principal); R53.82 Chronic fatigue, unspecified
CPT/HCPCS: 36415; 80053; 84439; 84443; 85025

== ENCOUNTER → 2023-09-01 | Outpatient (CLI) | payer MEDICARE ==
[2023-09-01 16:19] LABS: BASOPHILS # (AUTO) 0.04 K/uL (0.00-0.20); BASOPHILS % (AUTO) 0.5 % (0.0-5.0); EOSINOPHILS % (AUTO) 1.1 % (0.0-8.0); HEMATOCRIT 44.7 % (42-54); IMMATURE GRANULOCYTE ABSOLUTE 0.04 K/uL (0-1); LYMPHOCYTES # (AUTO) 2.6 K/uL (1.0-4.8); LYMPHOCYTES % (AUTO) 29.2 % (21.0-51.0); MEAN CORPUSCULAR HEMOGLOBIN 31.9 pg (27.0-33.0); MEAN CORPUSCULAR HGB CONC 32.4 g/dL (32.0-36.0); MEAN CORPUSCULAR VOLUME 98.5 fL (79-99); MONOCYTES # (AUTO) 0.7 K/uL (0.1-1.0); MONOCYTES % (AUTO) 7.5 % (3.0-13.0); NEUTROPHILS # (AUTO) 5.4 K/uL (1.8-7.7); NEUTROPHILS % (AUTO) 61.2 % (40.0-77.0); PLATELET COUNT (AUTO) 119 K/uL (130-400); RED BLOOD CELL COUNT(AUTO) 4.54 MIL/uL (4.50-6.20); RED CELL DISTRIBUTION WIDTH 15.8 % (11.0-15.5); WHITE BLOOD COUNT (AUTO) 8.8 K/uL (4.8-10.8)
[2023-09-01 16:57] LABS: ALBUMIN 3.5 g/dL (3.5-5.0); BILIRUBIN,TOTAL 0.9 mg/dL (0.2-1.0); CREATININE 1.9 mg/dL (0.5-1.3); POTASSIUM 4.4 mmol/L (3.5-5.1)
== END | disposition home or self-care (01) ==
LOC: LAB 13:38
PROVIDERS: ATTEND Internal Medicine Cardiovascular Disease
DX: I50.22 Chronic systolic (congestive) heart failure (principal)
CPT/HCPCS: 36415; 80053; 85025

== ENCOUNTER 2024-01-07 10:10 | Inpatient (IN) | payer MEDICARE ==
[~2024-01-07] VITALS: Ht 190.5 cm; Wt 92.5 kg
[2024-01-07] MEDS: 0.9%NACL 1000ML 2,586 ML IV ONE (11:06)
[2024-01-07] MEDS: cefTRIAXone 1G VIAL IVPB ONE (11:06)
--- NOTE | 2024-01-07 11:09 | ERN ---
General Chief Complaint: Weakness Stated Complaint: WEAKNESS, NAUSEA, DIARRHEA Time Seen by MD: 10:12 History of Present Illness Initial Comments 83-year-old male presents to the ED for evaluation of back pain onset 5 days ago. Patient reports weakness, nausea, vomiting, diarrhea, but denies any other associated symptoms at this time. Patient was seen by PCP and sent to the ER for further evaluation to rule out sepsis and dehydration. At PCP's office patient was hypotensive 92/37. Medical history HTN, AAA, colon surgery, open heart surgery, patient reports he has 1 functioning kidney. [address]. Mccarty, PCP Dr.Luna Horner. No other medical or surgical history mentioned. Allergies: Coded Allergies: No Known Allergies (Verified Allergy, Unknown, 09/15/17) amoxicillin (Unverified Allergy, Unknown, 01/07/24) Home Meds Active Scripts Tramadol HCl/Acetaminophen (Ultracet Tablet) 1 Each Tablet, 1 EACH PO TID for Hematoma left lower extremity, #45 TAB Prov:JARVIS BRAND 12/31/21 Reported Medications Vit B Cmplx No3/FA/C/Biot/Zinc (Nephplex Rx Tablet) 1 Each Tablet, 1 EACH PO DAILY, TAB 01/04/22 Sacubitril/Valsartan (Entresto 24 mg-26 mg Tablet) 1 Each Tablet, 1 EACH PO TID, TAB 01/04/22 Metoprolol Succinate (Metoprolol Succinate) 25 Mg Tab.er.24h, 25 MG PO DAILY, TAB 01/04/22 Allopurinol (Allopurinol) 100 Mg Tablet, 100 MG PO PM, TAB 01/04/22 Prednisone (Prednisone) 20 Mg Tablet, 20 MG PO DAILY, TAB 01/04/22 Aspirin (Aspirin EC) 81 Mg Tablet.dr, 81 MG PO DAILY, TAB 05/22/21 Tamsulosin HCl (Tamsulosin HCl) 0.4 Mg Cap.er.24h, 0.4 MG PO HS, CAPSULE. 01/13/17 Ezetimibe (Zetia) 10 Mg Tablet, 10 MG PO DAILY, TAB 08/21/16 Atorvastatin Calcium (Atorvastatin Calcium) 40 Mg Tablet, 20 MG PO HS, TAB 08/21/16 Past Medical History Past Medical History: CVA, High Cholesterol, Heart Disease, Hypertension, Seizure Medical History Other: AAA Past Surgical History: Pacer/AICD, Other Surgical History Other: LVA, BRAIN BLEED, COLON SURGERY, KIDNEY REMOVAL UNSURE WHICH SIDE Family History Family History: HTN Social History Social History: Negative, Lives with family ROS Dictation Constitutional: Positive for weakness Negative for fever,chills, and weight loss Eyes: Negative for injury, pain,redness, and discharge ENT: Negative for injury,pain or swelling Cardiovascular: Negative for chest pain, palpitations, and edema Respiratory: Negative for shortness of breath, cough, and wheezing, Abdomen/GI: Positive for nausea, vomiting, diarrhea negative for abdominal pain constipation Back: Positive for back pain, negative for injury : Negative for injury, bleeding and discharge MS/Extremity: Negative for injury and deformity Skin: Negative for rash, and discoloration Neuro: Negative for headache, weakness, numbness, tingling, and seizure Psych: Negative for suicide ideation, homicidal ideation, and hallucinations Physical Exam Physical Exam Dictation General: awake, alert, NAD Head/Face: Normocephalic, atraumatic Eyes: PERRL, EOMI, vision at baseline ENT: oral cavity clear, TMs clear, no signs of infection Neck: Trachea midline, supple, no nuchal rigidity Cardiovascular: RRR, normal S1/S2, No MRGs, no JVD Respiratory: CTAB, no respiratory distress, No rales or wheezes Abdomen: Soft, non-tender, non-distended, normal bowel sounds, no guarding or rebound. Skin: Warm, dry, normal turgor, no rash MS/Extremity: Pulses equal, no cyanosis, neurovascular intact, FROM Neuro: COAx4, GCS 15, strength 5/5, CN 2-12 intact, normal cerebellar exam, normal gait, Psych: Normal behavior, mood, and affect normal Results Laboratory and Microbiology Lab and Micro Result Laboratory Tests Test 01/07/24 10:42 White Blood Count 10.0 K/uL (4.8-10.8) Red Blood Count 4.11 MIL/uL (4.50-6.20) L Hemoglobin 12.9 g/dL (14.0-18.0) L Hematocrit 38.5 % (42-54) L Mean Corpuscular Volume 93.7 fL (79-99) Mean Corpuscular Hemoglobin 31.4 pg (27.0-33.0) Mean Corpuscular Hemoglobin Concent 33.5 g/dL (32.0-36.0) Red Cell Distribution Width 14.9 % (11.0-15.5) Platelet Count 113 K/uL (130-400) L Mean Platelet Volume 11.8 fL (7.5-10.5) H Immature Granulocyte % (Auto) 1.6 % (0-1) H Neutrophils (%) (Auto) 89.1 % (40.0-77.0) H Lymphocytes (%) (Auto) 5.0 % (21.0-51.0) L Monocytes (%) (Auto) 4.2 % (3.0-13.0) Eosinophils (%) (Auto) 0.0 % (0.0-8.0) Basophils (%) (Auto) 0.1 % (0.0-5.0) Neutrophils # (Auto) 8.9 K/uL (1.8-7.7) H Lymphocytes # (Auto) 0.5 K/uL (1.0-4.8) L Monocytes # (Auto) 0.4 K/uL (0.1-1.0) Eosinophils # (Auto) 0.00 K/uL (0.00-0.70) Basophils # (Auto) 0.01 K/uL (0.00-0.20) Absolute Immature Granulocyte (auto 0.16 K/uL (0-1) Nucleated Red Blood Cells 0.0 % (0.0-0.19) White Cell Morphology Comment See comments Sodium Level 130 mmol/L (136-145) L Potassium Level 6.2 mmol/L (3.5-5.1) *H Chloride Level 92 mmol/L (101-111) L Carbon Dioxide Level 17 mmol/L (21-32) L Blood Urea Nitrogen 121 mg/dL (7-18) *H Creatinine 13.7 mg/dL (0.5-1.3) *H Glomerular Filtration Rate Calc 3 mL/min (>90) Random Glucose 111 mg/dL (70-105) H Lactic Acid Level 2.1 mmol/L (0.8-2.5) Total Calcium 8.4 mg/dL (8.5-10.1) L Total Bilirubin 0.9 mg/dL (0.2-1.0) Direct Bilirubin 0.3 mg/dL (0.0-0.3) Aspartate Amino Transf (AST/SGOT) 45 U/L (10-37) H Alanine Aminotransferase (ALT/SGPT) 25 U/L (12-78) Alkaline Phosphatase 97 U/L (50-136) Total Creatine Kinase 189 U/L (21-232) # Troponin I High Sensitivity 141 ng/L (4-75) *H Total Protein 5.8 g/dL (6.0-8.3) L Albumin 2.8 g/dL (3.5-5.0) L Procalcitonin 19.67 ng/mL (0.05-0.5) H Influenza Type A Antigen Negative For Type A Influenza Type B Antigen Negative For Type B SARS-CoV-2 Antigen (Rapid) PRESUMPTIVE NEGATIVE Labs Reviewed?: Yes MDM CC: back pain, weakness, hypotension Vital signs: Blood pressure 117/100 on arrival, went as low as 93/48. Oxygen saturation 93-95% on room air. No tachycardia. CBC: No leukocytosis. Left shift. No bands. Hemoglobin 12.9. BMP: Sodium 130 chloride 92 carbon dioxide 17. The potassium is 6.2 BUN 121 creatinine 13.7. Lactic acid stable. Liver enzymes stable. Procalcitonin 19.6. Troponin 141. CT scan of the abdomen and pelvis without contrast shows no obvious renal stones or renal abnormalities. There is a large AAA. Independently interpreted by me. CXR: No cardiomegaly or focal infiltrates independently interpreted by me. Patient recieved 30cc/kg, rocephin. On sepsis focused re-evaluation after fluids & abx the patient has stable perfusion, stable VS. Patient received kayexalate, dextrose & insulin, and calcium for hyperkalemia. Will admit for further treatment & evaluation. Differential diagnosis: Renal stone, weakness, back pain Previous outside records reviewed: Old ER visits. Need for hospitalization: Patient does meet criteria for hospitalization. Need for emergency major/minor surgery: No Patient's prior external medical records from other ER visits were reviewed by me as indicated. Prior testing and results from previous visits were reviewed. Prior tests were taken into account with medical decision making and resource utilization, independent historian/historians were used to obtain complete medical history. I independently interpreted the test that were performed, results were reviewed by me and considered findings on radiology if ordered. Medical management and examination interpretation discussions were had by me with other qualified healthcare professionals as indicated for the patient's care. ED Course Orders Procedure Category Date Status Time Cbc With Differential LAB 01/07/24 Complete 10:18 Blood Cult GIOVANNA 01/07/24 In Process 10:18 Urinalysis Profile LAB 01/07/24 Logged 10:18 Culture Urine GIOVANNA 01/07/24 Logged 10:18 0.9%Nacl 1000ml (Ns PHA 01/07/24 In Process 1000ml) 10:30 Creatine Kinase, Total LAB 01/07/24 Complete 10:18 Troponin I High LAB 01/07/24 Complete Sensitivity 10:18 Lactic Acid LAB 01/07/24 Complete 10:18 Basic Metabolic Panel LAB 01/07/24 Complete 10:18 Procalcitonin LAB 01/07/24 Complete 10:18 Hepatic Function Panel LAB 01/07/24 Complete 10:18 Covid19 (Sars Antigen LAB 01/07/24 Complete Rapid) 10:18 Influenza Type A & B, LAB 01/07/24 Complete Rapid 10:18 Ceftriaxone 1g Vial PHA 01/07/24 Complete (Rocephine 1g Inj) 10:30 Chest 1vw RAD 01/07/24 Resulted 10:53 Ct Abdomen/Pelvis W/O CT 01/07/24 Resulted Contrast 11:04 Calcium Gluc 1gm PHA 01/07/24 In Process (Calcium Gluc 1gm 11:30 Dextrose 50%-Water PHA 01/07/24 Complete (Dextrose 50%-Water) 11:30 Insulin Regular, PHA 01/07/24 Complete Human 3ml (Humulin R 11:30 Sodium Polystyr Sulf PHA 01/07/24 In Process 15gm (Kayexalate 15 11:30 Current Medications Medications (Trade) Dose Ordered Sig/Joni Route PRN Reason Start Time Stop Time Status Last Admin Dose Admin Calcium Gluconate 1 gm/Sodium Chloride 110 ml @ 110 mls/hr ONCE ONCE IV 01/07/24 11:30 01/07/24 12:29 Ceftriaxone Sodium (ROCEphine 1G INJ) 1 gm ONCE ONCE IVPB 01/07/24 10:30 01/07/24 10:31 DC 01/07/24 11:06 Dextrose (Dextrose 50%-Water) 25 gm ONCE ONCE IV 01/07/24 11:30 01/07/24 11:31 DC Insulin Human Regular (humuLIN R 100 UNIT/ML 3ML) 5 unit ONCE ONCE IV 01/07/24 11:30 01/07/24 11:31 DC Sodium Polystyrene Sulfonate (kayEXALate 15 GM/60 ML) 15 gm Q2H PO 01/07/24 11:30 01/07/24 13:31 Sodium Chloride 2,586 ml @ 862 mls/hr ONCE ONCE IV 01/07/24 10:30 01/07/24 13:29 01/07/24 11:06 Vital Signs Date Time Temp Pulse Resp B/P (MAP) Pulse Ox O2 Delivery O2 Flow Rate FiO2 01/07/24 12:12 70 18 93/48 93 Room Air* 0 21 01/07/24 10:34 86 18 105/55 95 Room Air* 0 21 01/07/24 10:12 98.2 81 16 117/100 94 Room Air 0 DX & DISP Disposition: Inpatient Departure Impression: Primary Impression: CHARITY (acute kidney injury) Additional Impressions: AAA (abdominal aortic aneurysm) without rupture, Iliac artery aneurysm, UTI (urinary tract infection), NSTEMI (non-ST elevated myocardial infarction), Sepsis, Hyperkalemia Critical Time: 30 minutes (Critical Care Procedure NoteAuthorized and Performed by: meTotal critical care time: Approximately 36 minutesDue to a high probability of clinically significant, life threatening deterioration, the patient required my highest level of preparedness to intervene emergently and I personally spent this critical care time directly and personally managing the patient. This critical care time included obtaining a history; examining the patient; pulse oximetry; ordering and review of studies; arranging urgent treatment with development of a management plan; evaluation of patient's response to treatment; frequent reassessment; and, discussions with other providers.This critical care time was performed to assess and manage the high probability of imminent, life-threatening deterioration that could result in multi-organ failure. It was exclusive of separately billable procedures and treating other patients and teaching time.Please see MDM section and the rest of the note for further information on patient assessment and treatment.) Condition: Stable Referrals: NINO ALTMAN MD (PCP) I have reviewed, & agreed with my scribe's, documentation. (Entered by Jewel Salgado, acting as a scribe for Dr. Gates) I personally scribed for MICHELA GATES) on 01/07/24 at 11:09. Electronically submitted by [employer] Na[employer] ([employer]). I personally scribed for MICHELA GATES DO (XIAO) on 01/07/24 at 12:08. Electronically submitted by [employer] Salgado ([employer]). MICHELA GATES DO Jan 07, 2024 11:09
[2024-01-07 11:13] LABS: BASOPHILS # (AUTO) 0.01 K/uL (0.00-0.20); BASOPHILS % (AUTO) 0.1 % (0.0-5.0); HEMATOCRIT 38.5 % (42-54); IMMATURE GRANULOCYTE ABSOLUTE 0.16 K/uL (0-1); LYMPHOCYTES # (AUTO) 0.5 K/uL (1.0-4.8); MEAN CORPUSCULAR HEMOGLOBIN 31.4 pg (27.0-33.0); MEAN CORPUSCULAR HGB CONC 33.5 g/dL (32.0-36.0); MEAN CORPUSCULAR VOLUME 93.7 fL (79-99); MONOCYTES # (AUTO) 0.4 K/uL (0.1-1.0); MONOCYTES % (AUTO) 4.2 % (3.0-13.0); NEUTROPHILS # (AUTO) 8.9 K/uL (1.8-7.7); NEUTROPHILS % (AUTO) 89.1 % (40.0-77.0); PLATELET COUNT (AUTO) 113 K/uL (130-400); RED BLOOD CELL COUNT(AUTO) 4.11 MIL/uL (4.50-6.20); RED CELL DISTRIBUTION WIDTH 14.9 % (11.0-15.5)
[2024-01-07 11:16] LABS: ALBUMIN 2.8 g/dL (3.5-5.0); BILIRUBIN,DIRECT 0.3 mg/dL (0.0-0.3); BILIRUBIN,TOTAL 0.9 mg/dL (0.2-1.0); TOTAL PROTEIN, SERUM 5.8 g/dL (6.0-8.3)
[2024-01-07 11:18] LABS: COVID19 (SARS ANTIGEN RAPID) PRESUMPTIVE NEGATIVE (NEGATIVE); INFLUENZA TYPE A Negative For Type A (NEGATIVE); INFLUENZA TYPE B Negative For Type B (NEGATIVE)
[2024-01-07 11:20] LABS: CREATININE 13.7 mg/dL (0.5-1.3); POTASSIUM 6.2 mmol/L (3.5-5.1)
[2024-01-07] MEDS: INSULIN humuLIN R 100 UNIT/ML 3ML IV ONE (11:30)
[2024-01-07] MEDS: DEXTROSE 50%-WATER 25 GM/50 ML VIAL IV ONE (11:30)
--- NOTE | 2024-01-07 11:49 | HMCIMG ---
CT ABDOMEN/PELVIS W/O CONTRAST REASON: R flank pain COMPARISON: 05/30/2022. FINDINGS: Lung bases are clear. There are no focal liver lesions. Right kidney is atrophic, left kidney appears unremarkable with the exception of a small cyst lower pole. There is no mass or hydronephrosis in either kidney. There is a nonobstructing 1 cm stone in the lower pole calyx of the left kidney.. Spleen and pancreas appear unremarkable. There are multiple small stones in an otherwise normal-appearing gallbladder. Intrahepatic biliary tree does not appear distended. Bowel loops appear unremarkable. This includes normal appearance of the appendix There is no evidence of free fluid or intraperitoneal air. There are no focal fluid collections. There is an abdominal aortic aneurysm. This is predominantly circular but has a focal extension to the left of midline in the midportion. The aneurysm has increased slightly in size, axial dimension in the midportion is 6.0 x 6.5 cm, this same level on prior study measurement was 5.7 x 6.2 cm. There is no CT evidence of leak. There is also a left common iliac artery aneurysm, this measures 7.5 x 7.8 cm. This measured 6.9 x 6.2 cm on the previous exam. This also has increased in size. There is no evidence of leak. Retroperitoneum appears otherwise unremarkable. Anterior abdominal wall appears normal. Bones appear unremarkable. The anterior abdominal wall is intact. Osseous structures appear unremarkable. IMPRESSION: 1. Abdominal aortic aneurysm which appears to begin at the level of the renal arteries, 6.0 x 6.5 cm in the midportion, at the same level on previous exam this measured 5.7 x 6.24 a small interval increase in size. 2. There is a left common iliac artery aneurysm measuring 7.5 x 7.8 cm, this measured 6.2 x 6.9 cm on the prior study. 3. Cholelithiasis without evidence of acute cholecystitis. CT was performed with one or more following dose reduction techniques: automated exposure control, adjustment of the mA and kv according to patient's size, or use of a iterative reconstruction technique.
--- NOTE | 2024-01-07 12:06 | HMCIMG ---
CHEST 1VW REASON: fever COMPARISON: None. FINDINGS: Single view of the chest was obtained. Lungs are clear. Heart size is normal. There is no pulmonary vascular congestion. Mediastinum and bony thorax appear unremarkable. There is been previous median sternotomy. There is a bipolar pacemaker in place. IMPRESSION: 1. No acute process seen in the chest.
[2024-01-07] MEDS: CALCIUM GLUC 1GM/10ML VIAL ONE (13:09)
[2024-01-07] MEDS: kayEXALate 15GM/60ML PO SCH (13:27)
[2024-01-07] MEDS: DEXTROSE 50%-WATER 50 ML DISP.SYRIN IV ONE (13:28)
[2024-01-07] MEDS: CALCIUM GLUC 1GM 1 GM in 0.9%NACL 100ML 100 ML IV ONE (13:30)
[2024-01-07] MEDS ORDERED: DEXTROSE 5 % AND 0.9 % NACL 1,000 ML IV SCH (15:00)
[2024-01-07] MEDS: DEXTROSE IV SCH (15:10)
[2024-01-07] MEDS: NACL IV SCH (15:10)
[2024-01-07] MEDS: SODIUM BICARB IV SCH (15:10)
[2024-01-07] MEDS: HEParin 5,000 UNIT VIAL SQ SCH (18:13)
[2024-01-07 18:48] LABS: ADD UA MICROSCOPIC YES; APPEARANCE,URINE CLOUDY (CLEAR); BILIRUBIN,URINE NEGATIVE (NEGATIVE); COLOR,URINE YELLOW (YELLOW); GLUCOSE, URINE (UA) NEGATIVE (NEGATIVE); KETONES,URINE NEGATIVE (NEGATIVE); LEUKOCYTE ESTERASE ,URINE 25 Leu/uL (NEGATIVE); NITRATE,URINE NEGATIVE (NEGATIVE); OCCULT BLOOD,URINE LARGE (NEGATIVE); PROTEIN,URINE 300 mg/dL (NEGATIVE); UROBILINOGEN,URINE 0.2 mg/dL (0.2-1.0)
[2024-01-07 18:50] LABS: BACTERIA,URINE RARE /HPF (None Seen); MUCUS,URINE RARE LPF (None Seen); OTHER CASTS, URINE 11 /LPF (None Seen); RBC,URINE 26-50 /HPF (0-1); SQUAMOUS EPITHELIAL CELL,UR RARE /HPF (0-2); WBC CLUMP FEW /HPF (0-1)
[2024-01-07] MEDS: acetaMINOPHEN 325 MG TAB PO PRN (20:54)
[2024-01-07 21:10] VITALS: BP 145/87; PULSE 87; RESP 22; TEMP 98.7
[2024-01-07 21:41] VITALS: O2SAT 91
[2024-01-07] MEDS ORDERED: TAMS-1 PO (21:47)
[2024-01-07] MEDS ORDERED: CETI10TA57 PO (21:47)
[2024-01-07] MEDS ORDERED: DAPA10TA PO (21:47)
[2024-01-07] MEDS ORDERED: APIX2.5T PO (21:47)
[2024-01-07] MEDS ORDERED: FURO20TA4 PO (21:47)
--- NOTE | 2024-01-07 23:31 | HP ---
HISTORY AND PHYSICAL DATE OF SERVICE: 01/07/2024 PRESENTING COMPLAINT: Nausea, vomiting, diarrhea with weakness. HISTORY OF PRESENT ILLNESS: An 83-year-old male with history of hypertension, BPH, abdominal aortic aneurysm, who presented to the hospital with above complaint. The patient noticed increased weakness, nausea, vomiting, diarrhea and decided to come to the Emergency Room. No fever or chills. WBC was 10,000. The patient found with elevated procalcitonin. No sick contact, no recent travel. The patient also found with BUN of 138, creatinine 13.7. Potassium was elevated at 6.2. No chest pain, no palpitation or orthopnea. The patient ____ have history of chronic kidney disease in the past. The patient follow up with Dr. Carpio. PAST MEDICAL HISTORY: * Hypertension. * Abdominal aortic aneurysm. * BPH. * Coronary artery disease. * Left ventricular aneurysm. PAST SURGICAL HISTORY: * Left ventricular aneurysm repair. * Colon resection. * Abdominal aortic aneurysm repair. * Appendectomy. * Right foot surgery. * PTCA. ALLERGIES: No known drug allergy. HOME MEDICATIONS: Reviewed. SOCIAL HISTORY: No alcohol, tobacco or illicit drug use. FAMILY HISTORY: Noncontributory. REVIEW OF SYSTEMS: CONSTITUTIONAL: Positive for weakness and fatigue. No weight loss or night sweats. EYES: No eye pain, no photophobia or diplopia. HENT: No sore throat, no rhinorrhea or earache. NECK: No neck pain or neck swelling. RESPIRATORY: No cough, no hemoptysis or pleuritic pain. CARDIOVASCULAR: No chest pain, no palpitation or orthopnea. GASTROINTESTINAL: Denied nausea, vomiting, or abdominal pain. GENITOURINARY: Denies dysuria, urgency or urinary frequency. CENTRAL NERVOUS SYSTEM: No headache, dyspnea, or slurred speech. PSYCHIATRY: No depression. No suicidal ideation. MUSCULOSKELETAL: No joint pain or joint swelling. PHYSICAL EXAMINATION: GENERAL: Elderly male, awake, afebrile to touch, ill looking. VITAL SIGNS: Temperature 98.2, pulse 70, respiratory rate 18, BP 93/48. EYES: No icterus. Pupils equal and reactive. HENT: No oral thrush seen. Moist oral mucosa. NECK: Supple, no JVD or thyromegaly. LUNGS: Good air entry. No rales, no rhonchi. CARDIOVASCULAR: S1, S2 regular. No murmur heard. ABDOMEN: Full, soft, nontender. Bowel sound is present. CENTRAL NERVOUS SYSTEM: Awake, alert and oriented x 3. No focal deficits. SKIN: No rashes, no itchiness. LYMPHATIC: No peripheral lymphadenopathy. BACK: No deformity. No pressure ulcer. MUSCULOSKELETAL: No joint swelling, erythema or tenderness. LABORATORY DATA: Troponin 141, bicarbonate 17. Sodium 130, potassium 6.2, BUN 121, creatinine 13.7. WBC 10.0, hemoglobin 12.9, platelet 113. RADIOLOGY: CT of the abdomen and pelvis reported as abdominal aortic aneurysm. ASSESSMENT: An 83-year-old male who presented with nausea and vomiting. CURRENT PROBLEMS: Include: * Hyperkalemia. * Acute renal failure. * Abdominal aortic aneurysm. * Metabolic acidosis. * Generalized weakness. * Abdominal aortic aneurysm. * History of hypertension. * History of BPH. PLAN: * The patient admitted to medical floor with telemetry. * The patient will be given Kayexalate. * Cardiology evaluation. * Nephrology evaluation. * Electrolyte will be corrected. * Avoid nephrotoxic medication. * Cardiac diet. * Home medication will be reconciled. TID: [id number] RECEIPT: [id number]
[2024-01-08] VITALS (25 sets, daily range): BP systolic 96–148; BP diastolic 53–82; PULSE 14–100; RESP 16–20; TEMP 97.6–98.7; O2SAT 91–95
[2024-01-08 04:27] LABS: BASOPHILS # (AUTO) 0.02 K/uL (0.00-0.20); BASOPHILS % (AUTO) 0.2 % (0.0-5.0); EOSINOPHILS # (AUTO) 0.01 K/uL (0.00-0.70); EOSINOPHILS % (AUTO) 0.1 % (0.0-8.0); HEMATOCRIT 36.4 % (42-54); IMMATURE GRANULOCYTE ABSOLUTE 0.04 K/uL (0-1); LYMPHOCYTES # (AUTO) 0.7 K/uL (1.0-4.8); LYMPHOCYTES % (AUTO) 8.3 % (21.0-51.0); MEAN CORPUSCULAR HEMOGLOBIN 33.3 pg (27.0-33.0); MEAN CORPUSCULAR HGB CONC 34.1 g/dL (32.0-36.0); MEAN CORPUSCULAR VOLUME 97.8 fL (79-99); MONOCYTES # (AUTO) 0.6 K/uL (0.1-1.0); MONOCYTES % (AUTO) 7.2 % (3.0-13.0); NEUTROPHILS # (AUTO) 6.8 K/uL (1.8-7.7); NEUTROPHILS % (AUTO) 83.7 % (40.0-77.0); PLATELET COUNT (AUTO) 106 K/uL (130-400); RED BLOOD CELL COUNT(AUTO) 3.72 MIL/uL (4.50-6.20); RED CELL DISTRIBUTION WIDTH 14.9 % (11.0-15.5); WHITE BLOOD COUNT (AUTO) 8.1 K/uL (4.8-10.8)
[2024-01-08 04:40] LABS: MAGNESIUM 2.3 mg/dL (1.80-2.40); POTASSIUM 5.2 mmol/L (3.5-5.1)
[2024-01-08 04:50] LABS: CREATININE 13.8 mg/dL (0.5-1.3)
[2024-01-08] MEDS: ondanSETRON 4MG INJ IVP PRN (06:42)
[2024-01-08 09:41] LABS: INR 1.21 (0.85-1.15); PROTHROMBIN TIME 12.9 SEC (9.6-11.6)
[2024-01-08] MEDS: ceFEPime HCL 1 GM VIAL IVPB SCH (10:10)
[2024-01-08] MEDS ORDERED: HEParin 1,000 UNIT VIAL ONE (10:52)
[2024-01-08] MEDS ORDERED: HEParin-NS 1,000 UNIT/500 ML 500 ML IV ONE (10:52)
[2024-01-08] MEDS ORDERED: LIDOCAINE HCL 1% MDV 50ML VIAL ONE (10:52)
--- NOTE | 2024-01-08 11:55 | PN ---
INFECTIOUS DISEASE PROGRESS NOTE Date of Service: Jan 08, 2024 SUBJECTIVE: Patient was seen and examined at bedside in room 303. Patient is awake, alert and oriented x3. Potassium level has improved to 5.2, the BUN and creatinine remains high, BUN of 126 and creatinine of 13.8. Patient has been evaluated by desktop operator and patient will be needing to start dialysis. Patient is pending a PermCath placement today. No reports of nausea or vomiting. No fever, temperature is 97.7. Will continue to monitor patient. PHYSICAL EXAM EYES: Anicteric. Pupils equal and reactive. HENT: No oral thrush seen, moist Oral mucosa NECK: Supple, no JVD or thyromegaly. LUNGS: Good air entry. No rales, no rhonchi. CARDIOVASCULAR: S1, S2 regular. No murmur heard. ABDOMEN: Soft, non tender, bowel sounds present, no organomegaly CENTRAL NERVOUS SYSTEM: Awake, alert, oriented x 3. No focal deficits. SKIN: No rashes, no swelling. LYMPHATICS: No peripheral lymphadenopathy MUSCULOSKELETAL: No joint swelling, erythema or tenderness. EXTREMITIES: No cyanosis or clubbing BACK: No deformity, no pressure ulcer. GENITOURINARY: No dysuria or hematuria Vital Sign (Last 12 Hours) 01/08/24 01/08/24 01/08/24 01/08/24 00:00 04:00 04:01 08:00 Temp 98.8 98.2 98.2 97.5 Pulse 80 85 85 81 Resp 20 20 20 19 B/P (MAP) 129/79 126/53 126/53 96/53 Pulse Ox 91 91 91 93 O2 Delivery Nasal Cannula Nasal Cannula Nasal Cannula Nasal Cannula O2 Flow Rate 2.0 2.0 2.0 2.0 01/08/24 08:00 Pulse Ox 91 O2 Delivery Nasal Cannula* O2 Flow Rate 2 FiO2 28 Intake & Output (last 24hrs) 01/07/24 01/07/24 01/08/24 15:00 23:00 07:00 Intake Total 2560.0 ml 100 ml Output Total 15 ml Balance 2545.0 ml 100 ml LABS: Laboratory: Test 01/08/24 09:25 01/08/24 03:35 01/07/24 18:38 01/07/24 15:54 Range/Units Prothrombin Time 12.9 H 9.6-11.6 SEC Prothromb Time International Ratio 1.21 H 0.85-1.15 White Blood Count 8.1 4.8-10.8 K/uL Red Blood Count 3.72 L 4.50-6.20 MIL/uL Hemoglobin 12.4 L 14.0-18.0 g/dL Hematocrit 36.4 L 42-54 % Mean Corpuscular Volume 97.8 79-99 fL Mean Corpuscular Hemoglobin 33.3 H 27.0-33.0 pg Mean Corpuscular Hemoglobin Concent 34.1 32.0-36.0 g/dL Red Cell Distribution Width 14.9 11.0-15.5 % Platelet Count 106 L 130-400 K/uL Mean Platelet Volume 10.9 H 7.5-10.5 fL Immature Granulocyte % (Auto) 0.5 0-1 % Neutrophils (%) (Auto) 83.7 H 40.0-77.0 % Lymphocytes (%) (Auto) 8.3 L 21.0-51.0 % Monocytes (%) (Auto) 7.2 3.0-13.0 % Eosinophils (%) (Auto) 0.1 0.0-8.0 % Basophils (%) (Auto) 0.2 0.0-5.0 % Neutrophils # (Auto) 6.8 1.8-7.7 K/uL Lymphocytes # (Auto) 0.7 L 1.0-4.8 K/uL Monocytes # (Auto) 0.6 0.1-1.0 K/uL Eosinophils # (Auto) 0.01 0.00-0.70 K/uL Basophils # (Auto) 0.02 0.00-0.20 K/uL Absolute Immature Granulocyte (auto 0.04 0-1 K/uL Nucleated Red Blood Cells 0.0 0.0-0.19 % Sodium Level 129 L 136-145 mmol/L Potassium Level 5.2 H 3.5-5.1 mmol/L Chloride Level 91 L 101-111 mmol/L Carbon Dioxide Level 16 L 21-32 mmol/L Blood Urea Nitrogen 126 *H 7-18 mg/dL Creatinine 13.8 *H 0.5-1.3 mg/dL Glomerular Filtration Rate Calc 3 >90 mL/min Random Glucose 131 H 70-105 mg/dL Total Calcium 8.2 L 8.5-10.1 mg/dL Magnesium Level 2.30 1.80-2.40 mg/dL Urine Color YELLOW YELLOW Urine Appearance CLOUDY H CLEAR Urine pH 6.0 5.0-8.0 Urine Specific [place] 1.019 1.001-1.031 Urine Protein 300 H NEGATIVE mg/dL Urine Glucose (UA) NEGATIVE NEGATIVE mg/dL Urine Ketones NEGATIVE NEGATIVE mg/dL Urine Occult Blood LARGE H NEGATIVE Urine Nitrate NEGATIVE NEGATIVE Urine Bilirubin NEGATIVE NEGATIVE mg/dL Urine Urobilinogen 0.2 0.2-1.0 mg/dL Urine Leukocyte Esterase 25 H NEGATIVE Alvin/uL Urine RBC 26-50 H 0-1 /HPF Urine WBC 11-25 H 0-1 /HPF Urine WBC Clumps (Auto) FEW 0-1 /HPF Urine Squamous Epithelial Cells RARE 0-2 /HPF Urine Bacteria RARE None Seen /HPF Urine Hyaline Casts 2-5 H 0-1 /LPF /LPF Urine Other Casts 11 None Seen /LPF Lactic Acid Level 1.6 0.8-2.5 mmol/L Test 01/07/24 10:42 Range/Units White Cell Morphology Comment See comments Total Bilirubin 0.9 0.2-1.0 mg/dL Direct Bilirubin 0.3 0.0-0.3 mg/dL Aspartate Amino Transf (AST/SGOT) 45 H 10-37 U/L Alanine Aminotransferase (ALT/SGPT) 25 12-78 U/L Alkaline Phosphatase 97 50-136 U/L Total Creatine Kinase 189 # 21-232 U/L Troponin I High Sensitivity 141 *H 4-75 ng/L Total Protein 5.8 L 6.0-8.3 g/dL Albumin 2.8 L 3.5-5.0 g/dL Procalcitonin 19.67 H 0.05-0.5 ng/mL Influenza Type A Antigen Negative For Type A NEGATIVE Influenza Type B Antigen Negative For Type B NEGATIVE SARS-CoV-2 Antigen (Rapid) PRESUMPTIVE NEGATIVE NEGATIVE ASSESSMENT: Acute on chronic renal failure, requiring dialysis.. Hyperkalemia. Metabolic acidosis. Generalized weakness. Hypertension. History abdominal aortic aneurysm. PLAN: Continue cefepime. Nephrology has been consulted and patient will need dialysis. Pending a PermCath placement. Cardiology has been consulted. Continue antihypertensive. We will follow up on the cultures. We will monitor electrolytes. This case was reviewed and discussed with my supervising physician and the above assessment and plan was formulated and agreed upon. ATTESTATION BY PHYSICIAN I have seen and examined the patient. I reviewed the documentation, medical decision making, and treatment plan as noted by the mid-level provider above. I agree with the findings and plan of care. IAN GOODRICH MD, [facility] Jan 08, 2024 11:54
--- NOTE | 2024-01-08 12:37 | HMCIMG ---
CHEST 1VW REASON: s/p Yair catheter insertion / verify placement COMPARISON: 01/07/2024 FINDINGS: There is a right IJ Yair catheter with in place with tip in the superior vena cava. There is no pneumothorax. Lungs are otherwise clear. Heart size is normal. Pacemaker and previous median sternotomy are again noted. IMPRESSION: 1. Client on catheter in place with tip in the superior vena cava, no pneumothorax.
--- NOTE | 2024-01-08 14:26 | CONS ---
NEPHROLOGY CONSULTATION REASON FOR CONSULTATION: Acute on chronic kidney injury. HISTORY OF PRESENT ILLNESS: The patient is an 83-year-old male with a history of underlying chronic kidney disease stage 3, coronary artery disease, ischemic cardiomyopathy, history of a large left subdural hematoma requiring craniotomy, who presents initially to the outpatient clinic with complaints of nausea, vomiting, diarrhea, weakness 5 days prior to presentation. The patient presented to the outpatient clinic with systolic blood pressure of 72 given and was referred to the ER for further evaluation. Labs on admission revealed a BUN of 121, creatinine of 13.7 with a potassium of 6.2 and sodium 130. Nephrology has been consulted to assist with evaluation and management of acute on chronic kidney injury. REVIEW OF SYSTEMS: CONSTITUTIONAL: Denies any fevers or chills. Does complain of excessive fatigue and weakness. EYES: Denies any acute change in vision. EARS: Does report decrease in hearing. NOSE AND THROAT: No congestion or sore throat. PULMONARY: Denies any cough or wheezing. Does report intermittent shortness of breath. CARDIOVASCULAR: Denies any chest pain, palpitation, orthopnea or PND. GASTROINTESTINAL: Decreased appetite, diarrhea, nausea, vomiting as per HPI. NEUROLOGIC: Denies any focal weakness or syncope. PSYCHIATRIC: Denies anxiety or depression. GENITOURINARY: Denies any gross hematuria, although does report decrease in urine output. 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 PAST SURGICAL HISTORY: Coronary artery bypass surgery x 2, left ventricular aneurysm repair, partial colectomy, tonsillectomy, hemorrhoid removal, appendectomy, left heart catheterization with PCI dual chamber AICD placement, renal angiogram, craniotomy. ALLERGIES: No known drug allergies. CURRENT MEDICATIONS: Have been reviewed. FAMILY HISTORY: Noncontributory. SOCIAL HISTORY: The patient is a former smoker, although quit several years ago. No alcohol use. He is and has good family support. PHYSICAL EXAMINATION: CURRENT VITAL SIGNS: Temperature is 98.2, pulse 85, blood pressure 126/53, respiratory rate is 20, satting 91% on 2 liters nasal cannula. GENERAL: The patient is awake. He is alert. He is not oriented, answering questions appropriately. HEENT: Anicteric sclerae. NECK: Supple. HEART: Regular rhythm and rate. CHEST: Coarse breath sounds. ABDOMEN: Soft, nontender. EXTREMITIES: Trace edema. NEUROLOGIC: Nonfocal. LABORATORY DATA: Sodium 129, potassium is 5.2, chloride 91, bicarbonate is 16, BUN is 126, creatinine is 13.8. White count is 8.1, hemoglobin 12.4, hematocrit 36.4, platelet count is 106. ASSESSMENT: * Acute on chronic kidney injury. * Underlying chronic kidney disease, stage 3. * Hyperkalemia. * Hyponatremia. * Presumed acidosis. * Diarrhea. * Nausea and vomiting. * Anemia. * Thrombocytopenia. * History of coronary artery disease. * Ischemic cardiomyopathy. * Left renal artery stenosis. PLAN: * Acute on chronic kidney injury. No response noted in renal clearance despite volume challenge overnight. Given progressive uremic symptoms, hyperkalemia, acidosis, discussed with the patient at length the need to initiate renal replacement therapy. The patient agrees to proceed. Did discuss with the patient's at [facility] on the phone. Plans are to proceed with IR for tunneled dialysis catheter placement and proceed with hemodialysis initiation, 2-hour treatment today, 2k bath, 2.5 calcium bath, UF 500 mL, 200 blood flow rate, 500 dialysate flow rate. Plan for 3 days of dialysis initiation. * Hyperkalemia, 2k bath today. Initiate dialysis. Trend labs. * Hyponatremia, presumed secondary to volume overload. Initiate hemodialysis and will trend. * Acidosis. Initiate renal replacement therapy. Trend lab studies. Discontinue sodium bicarbonate infusion once initiated. * Diarrhea appears to have improved. Further workup as per primary if indicated. TID: [id number] RECEIPT: [id number]
[2024-01-08] MEDS ORDERED: PHARMACY COMMUNICATION MISC SCH (16:00)
[2024-01-08 16:42] LABS: HEMATOCRIT 34.8 % (42-54)
[2024-01-08 16:55] LABS: HEMOGLOBIN A1C 6.4 % (4.0-6.0)
[2024-01-08 17:03] LABS: % IRON SATURATION 9.5 % (30-44)
--- NOTE | 2024-01-08 17:10 | HMCIMG ---
CHEST 1VW REASON: HD COMPARISON: 01/08/2024 FINDINGS: Single view of the chest was obtained. Lungs are clear. Heart size is normal. There is no pulmonary vascular congestion. Mediastinum and bony thorax appear unremarkable. There are no previous median sternotomy. There is a bipolar pacemaker in place. The temporal dialysis catheter in place. IMPRESSION: 1. No acute finding, no change.
[2024-01-08 17:34] LABS: HIV 1&2 ANTIBODY Non-Reactive (Negative); HIV-1 p24 Antigen Non-Reactive (Negative)
[2024-01-08] MEDS: 0.9%NACL 1000ML 1,000 ML IV SCH (18:15)
[2024-01-08 19:07] LABS: ALBUMIN 2.6 g/dL (3.5-5.0)
[2024-01-08 19:15] LABS: CREATININE 11.1 mg/dL (0.5-1.3)
[2024-01-09] VITALS (18 sets, daily range): BP systolic 100–139; BP diastolic 51–80; PULSE 56–88; RESP 16–21; TEMP 97.7–98.3; O2SAT 92–95
--- NOTE | 2024-01-09 03:46 | PR ---
CLINICAL HISTORY: An 83-year-old male with renal failure. PROCEDURE: Non-tunneled dialysis catheter placement with ultrasound guidance. TECHNIQUE: After obtaining informed consent, the patient was prepped and draped in the usual sterile fashion. Local anesthesia achieved with 1% lidocaine solution. Under ultrasound guidance, access obtained to the right internal jugular vein. A guidewire was passed centrally. The tract was dilated over the guidewire and a 15 cm non-tunneled dialysis catheter was advanced over the wire. Lumens were flushed demonstrated patency. The catheter was secured into place, covered with clean sterile dressing. A followup chest x-ray was ordered. FINDINGS: Patent right internal jugular vein. IMPRESSION: Uncomplicated ultrasound-guided non-tunneled hemodialysis catheter placement. As soon as the chest x-ray is reviewed and there are no complications, the catheter can be used. Thank you for allowing us to participate in the care of your patient. TID: [id number] RECEIPT: [id number]
[2024-01-09 04:21] LABS: HEMATOCRIT 34.8 % (42-54); MEAN CORPUSCULAR HEMOGLOBIN 31.4 pg (27.0-33.0); MEAN CORPUSCULAR HGB CONC 33.3 g/dL (32.0-36.0); MEAN CORPUSCULAR VOLUME 94.1 fL (79-99); RED BLOOD CELL COUNT(AUTO) 3.7 MIL/uL (4.50-6.20); RED CELL DISTRIBUTION WIDTH 14.8 % (11.0-15.5); WHITE BLOOD COUNT (AUTO) 6.1 K/uL (4.8-10.8)
[2024-01-09 04:54] LABS: MAGNESIUM 2.1 mg/dL (1.80-2.40); POTASSIUM 4.1 mmol/L (3.5-5.1)
--- NOTE | 2024-01-09 09:33 | PN ---
NEPHROLOGY FOLLOWUP NOTE INTERVAL HISTORY: The patient was evaluated this morning with nursing staff, no acute events reported overnight. The patient reports did not sleep well. Complains of lower back pain. Otherwise, denies any fevers, chills, chest pain, palpitations, abdominal pain, dialyzed 2 hours yesterday. OBJECTIVE: CURRENT VITAL SIGNS: Temperature is 97.9, pulse 73, blood pressure 115/60, respiratory rate is 18, satting 93% on 3.5 L nasal cannula. GENERAL: The patient is awake. He is alert. He is answering questions appropriately. CARDIAC: Regular rhythm and rate. CHEST: Clear anteriorly. ABDOMEN: Soft, nontender. EXTREMITIES: No edema. LABORATORY DATA: Sodium is 132, potassium is 4.1, chloride 94, bicarb is 20, BUN is 97, creatinine is 12.0, calcium is 8.1. White count is 6.1, hemoglobin 11.6, hematocrit 34.8, platelet count is 105. ASSESSMENT: 1. Acute on chronic kidney injury. 2. Underlying chronic kidney disease stage 3. 3. Acute hyperkalemia. 4. Hyponatremia. 5. Presumed acidosis. 6. Diarrhea. 7. Anemia. 8. Thrombocytopenia. 9. History of coronary artery disease. 10. Ischemic cardiomyopathy. 11. Left renal artery stenosis. PLAN: 1. Acute on chronic kidney injury. At this time, we will continue with hemodialysis initiation. Plan for day #2. Increase blood flow rate, dialysate flow rate, UF 500 mL as tolerated, albumin as needed for blood pressure support, 2 K bath, 2.5 calcium bath. 2. Hyperkalemia, 2 K bath again today. Continue renal diet. Trend labs. 3. Hyponatremia. Fluid restriction. Continue with hemodialysis initiation. 4. Acidosis, appears to be correcting. Continue with hemodialysis as ordered. TID: [id number] RECEIPT: [id number]
[2024-01-09] MEDS ORDERED: 0.9%NACL 1000ML 1,000 ML IV SCH (14:30)
[2024-01-09] MEDS ORDERED: ceTIRIzine HCL 5 MG TABLET PO PRN (15:00)
[2024-01-09 16:02] LABS: HEPATITIS B CORE AB TOTAL Non-Reactive (Nonreactive); HEPATITIS B SURFACE ANTIBODY Negative (Reactive); HEPATITIS B SURFACE ANTIGEN Non-Reactive (Nonreactive)
[2024-01-09] MEDS: tamSULOsin HCL 0.4 MG CAP.ER.24H PO SCH (19:31)
[2024-01-09] MEDS: APIXaban 2.5 MG TABLET PO SCH (19:31)
[2024-01-09] MEDS: SACUBITRIL/VALSARTAN 1 EACH TABLET PO SCH (19:31)
[2024-01-09] MEDS: atorVAStatin 20 MG TABLET PO SCH (19:31)
[2024-01-09] MEDS: alloPURInol 100 MG TABLET PO SCH (19:31)
[2024-01-09] MEDS: metOPROLol sucCINATE 25 MG TAB.SR.24H PO SCH (19:31)
[2024-01-09] MEDS ORDERED: tamSULOsin HCL 0.4 MG CAP.ER.24H PO SCH (21:00)
--- NOTE | 2024-01-09 21:22 | PN ---
DATE OF SERVICE: 01/09/2024. INFECTIOUS DISEASE FOLLOWUP NOTE SUBJECTIVE: The patient is seen and examined at bedside today. The patient has no fever, no chills. No nausea or vomiting. No chest pain, no palpitation or orthopnea. The patient has been started on dialysis, which he is tolerating. The patient has second dialysis session today, making some urine, but very minimal. No chest pain. No depression. No suicidal ideation. PHYSICAL EXAMINATION: VITAL SIGNS: Temperature 98.6. EYES: No icterus. Pupils equal and reactive. HENT: No oral thrush seen. Moist oral mucosa. NECK: Supple, no JVD or thyromegaly. LUNGS: Good air entry. No rales, no rhonchi. CARDIOVASCULAR: S1, S2 regular. No murmur heard. ABDOMEN: Obese, soft, and nontender. Bowel sounds are present. CENTRAL NERVOUS SYSTEM: Awake, alert, and oriented x 3. No focal deficit. SKIN: No rashes, no itchiness. LYMPHATIC: No peripheral lymphadenopathy. MUSCULOSKELETAL: No joint swelling, erythema or tenderness. BACK: No deformity, no pressure ulcer. ASSESSMENT: An 83-year-old male presenting with weakness and abnormal lab. CURRENT PROBLEMS: Include: * Hyperkalemia. * [id number] renal failure, requiring dialysis. * Abdominal aortic aneurysm. * Hypertension. * BPH. * Debility. PLAN: * Continue dialysis. * Continue antihypertensive. * Continue nutritional support. * Continue pain management. * Continue antiemetic. * Monitor electrolytes. * The patient will follow up closely. TID: [id number] RECEIPT: [id number]
[2024-01-10] VITALS (24 sets, daily range): BP systolic 117–165; BP diastolic 46–104; PULSE 55–77; RESP 16–22; TEMP 97.8–98.6; O2SAT 89–98
[2024-01-10 05:27] LABS: POTASSIUM 4.3 mmol/L (3.5-5.1)
[2024-01-10 05:46] LABS: CREATININE 10.2 mg/dL (0.5-1.3)
--- NOTE | 2024-01-10 12:39 | PN ---
INFECTIOUS DISEASE PROGRESS NOTE Date of Service: Jan 10, 2024 SUBJECTIVE: Patient was seen and examined at bedside in room 303. Patient is awake, alert and oriented x3. Patient is status post PermCath placement day #2 and new onset hemodialysis. Will be dialyzed with the 3rd treatment session today. Potassium level is now 4.3. The BUN after the 2nd dialysis session is 71 and a creatinine of 10.2. No reports of nausea or vomiting. No fever, temperature is 97.7. Will continue to monitor patient. PHYSICAL EXAM EYES: Anicteric. Pupils equal and reactive. HENT: No oral thrush seen, moist Oral mucosa NECK: Supple, no JVD or thyromegaly. LUNGS: Good air entry. No rales, no rhonchi. CARDIOVASCULAR: S1, S2 regular. No murmur heard. ABDOMEN: Soft, non tender, bowel sounds present, no organomegaly CENTRAL NERVOUS SYSTEM: Awake, alert, oriented x 3. SKIN: No rashes, no swelling. LYMPHATICS: No peripheral lymphadenopathy MUSCULOSKELETAL: No joint swelling, erythema or tenderness. EXTREMITIES: No cyanosis or clubbing BACK: No deformity, no pressure ulcer. GENITOURINARY: No dysuria or hematuria Vital Sign (Last 12 Hours) 01/10/24 01/10/24 01/10/24 04:00 08:00 12:00 Temp 98.2 98.1 98.2 Pulse 77 66 73 Resp 20 20 18 B/P (MAP) 132/55 117/70 127/73 Pulse Ox 96 95 97 O2 Delivery Room Air Room Air Room Air FiO2 21 21 Intake & Output (last 24hrs) 01/09/24 01/09/24 01/10/24 15:00 23:00 07:00 Intake Total 360 ml Output Total 600 ml Balance -240 ml LABS: Laboratory: Test 01/10/24 04:40 01/09/24 05:32 01/09/24 03:02 01/08/24 18:35 Range/Units Sodium Level 134 L 136-145 mmol/L Potassium Level 4.3 3.5-5.1 mmol/L Chloride Level 96 L 101-111 mmol/L Carbon Dioxide Level 25 21-32 mmol/L Blood Urea Nitrogen 71 H 7-18 mg/dL Creatinine 10.2 *H 0.5-1.3 mg/dL Glomerular Filtration Rate Calc 5 >90 mL/min Random Glucose 120 H 70-105 mg/dL Total Calcium 7.9 L 8.5-10.1 mg/dL Whole Blood Glucose 107 70-110 MG/DL White Blood Count 6.1 4.8-10.8 K/uL Red Blood Count 3.70 L 4.50-6.20 MIL/uL Hemoglobin 11.6 L 14.0-18.0 g/dL Hematocrit 34.8 L 42-54 % Mean Corpuscular Volume 94.1 79-99 fL Mean Corpuscular Hemoglobin 31.4 27.0-33.0 pg Mean Corpuscular Hemoglobin Concent 33.3 32.0-36.0 g/dL Red Cell Distribution Width 14.8 11.0-15.5 % Platelet Count 105 L 130-400 K/uL Mean Platelet Volume 11.2 H 7.5-10.5 fL Nucleated Red Blood Cells 0.0 0.0-0.19 % Magnesium Level 2.10 1.80-2.40 mg/dL Ferritin 568 H 30-400 ng/mL Albumin 2.6 L 3.5-5.0 g/dL Triglycerides Level 121 30-200 mg/dL Cholesterol Level 113 <200 mg/dL LDL Cholesterol 59 0-99 mg/dL HDL Cholesterol 33 29-71 mg/dL Test 01/08/24 16:35 Range/Units Hemoglobin A1c 6.4 H 4.0-6.0 % Estimated Average Glucose (eAG) 137 H 70-126 mg/dL Iron Level 15 L 65-175 mcg/dL Total Iron Binding Capacity 157 L 250-450 mcg/dL Percent Iron Saturation 9.5 L 30-44 % Hepatitis B Surface Antigen. Non-Reactive Nonreactive Hepatitis B Surface Antibody. Negative L Reactive Hepatitis B Core Total Antibody. Non-Reactive Nonreactive Hepatitis C Antibody Non-Reactive Nonreactive HIV (1&2) Antibody Non-Reactive Negative HIV P24 Antigen, Qualitative Non-Reactive Negative ASSESSMENT: Acute on chronic renal failure, status post PermCath placement and new onset dialysis. Hyperkalemia, resolving. Metabolic acidosis. Generalized weakness. Hypertension. History abdominal aortic aneurysm. PLAN: Continue cefepime. Nephrology following patient. Cardiology has been consulted. Continue antihypertensive. We will monitor electrolytes. This case was reviewed and discussed with my supervising physician and the above assessment and plan was formulated and agreed upon. ATTESTATION BY PHYSICIAN I have seen and examined the patient. I reviewed the documentation, medical decision making, and treatment plan as noted by the mid-level provider above. I agree with the findings and plan of care. IAN GOODRICH MD, MIRTA L [facility] Jan 10, 2024 12:39
[2024-01-10] MEDS: HEParin 5,000 UNIT VIAL IRRIG SCH (19:36)
[2024-01-10] MEDS: 0.9%NACL 1000ML 1,000 ML IV SCH (19:40)
--- NOTE | 2024-01-10 19:47 | EKG ---
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 [id number] : 1940 Requested By: NINO ALTMAN Order Number: [id number] Reading MD: Parker Britton Measurements Intervals [place] Rate: 76 P: 13 ID: [id number] QRS: -21 QRSD: 106 T: 120 QT: 386 QTc: 434 Interpretive Statements Sinus rhythm with premature atrial complexes Low voltage QRS Cannot rule out Anterior infarct , age undetermined Compared to ECG 05/22/2021 12:47:48 Atrial premature complex(es) now present Left-axis deviation no longer present ST (T wave) deviation no longer present Possible ischemia no longer present Myocardial infarct finding still present Electronically Signed On 01-12-2024 13:09:10 ROBOT PROGRAMMER by Parker Britton Please click the below link to view image of tracing.
[2024-01-10] MEDS: Vitamin B Complex/Vit C/Folic Acid PO SCH (21:23)
[2024-01-10] MEDS: ASPIRIN 81 MG EC TAB PO SCH (21:25)
[2024-01-10] MEDS: EZETIMIBE 10 MG TAB PO SCH (21:26)
[2024-01-10] MEDS: DAPAGLIFLOZIN PROPANEDIOL PO SCH (21:35)
[2024-01-11] VITALS (9 sets, daily range): BP systolic 122–145; BP diastolic 53–76; PULSE 54–79; RESP 17–22; TEMP 98–98.8; O2SAT 92–97
[2024-01-11 05:32] LABS: BASOPHILS # (AUTO) 0.02 K/uL (0.00-0.20); BASOPHILS % (AUTO) 0.3 % (0.0-5.0); EOSINOPHILS # (AUTO) 0.24 K/uL (0.00-0.70); EOSINOPHILS % (AUTO) 3.9 % (0.0-8.0); HEMATOCRIT 32.7 % (42-54); IMMATURE GRANULOCYTE ABSOLUTE 0.08 K/uL (0-1); LYMPHOCYTES # (AUTO) 0.6 K/uL (1.0-4.8); LYMPHOCYTES % (AUTO) 9.7 % (21.0-51.0); MEAN CORPUSCULAR HEMOGLOBIN 31.3 pg (27.0-33.0); MEAN CORPUSCULAR HGB CONC 34.3 g/dL (32.0-36.0); MEAN CORPUSCULAR VOLUME 91.3 fL (79-99); MONOCYTES # (AUTO) 0.4 K/uL (0.1-1.0); MONOCYTES % (AUTO) 6.4 % (3.0-13.0); NEUTROPHILS # (AUTO) 4.8 K/uL (1.8-7.7); NEUTROPHILS % (AUTO) 78.4 % (40.0-77.0); PLATELET COUNT (AUTO) 123 K/uL (130-400); RED BLOOD CELL COUNT(AUTO) 3.58 MIL/uL (4.50-6.20); RED CELL DISTRIBUTION WIDTH 14.8 % (11.0-15.5); WHITE BLOOD COUNT (AUTO) 6.1 K/uL (4.8-10.8)
[2024-01-11 06:05] LABS: BILIRUBIN,TOTAL 0.8 mg/dL (0.2-1.0); MAGNESIUM 1.7 mg/dL (1.80-2.40); POTASSIUM 3.9 mmol/L (3.5-5.1); TOTAL PROTEIN, SERUM 5.3 g/dL (6.0-8.3)
[2024-01-11 06:11] LABS: CREATININE 8.3 mg/dL (0.5-1.3)
--- NOTE | 2024-01-11 14:07 | PN ---
INFECTIOUS DISEASE PROGRESS NOTE Date of Service: Jan 11, 2024 SUBJECTIVE: Patient was seen and examined at bedside in room 303. Patient is awake, alert and oriented x 3. Patient is new onset dialysis and has received three dialysis sessions and pending dialysis chair to be set up. 800 mL were removed yesterday. The BUN is 46 and a creatinine of 8.3 today. No reports of nausea or vomiting. Patient is able to ambulate to the restroom with supervision. No fever, temperature is 98.1. Will continue to monitor patient. PHYSICAL EXAM EYES: Anicteric. Pupils equal and reactive. HENT: No oral thrush seen, moist Oral mucosa NECK: Supple, no JVD or thyromegaly. LUNGS: Good air entry. No rales, no rhonchi. CARDIOVASCULAR: S1, S2 regular. No murmur heard. ABDOMEN: Soft, non tender, bowel sounds present, no organomegaly CENTRAL NERVOUS SYSTEM: Awake, alert, oriented x 3. SKIN: No rashes, no swelling. LYMPHATICS: No peripheral lymphadenopathy MUSCULOSKELETAL: No joint swelling, erythema or tenderness. EXTREMITIES: No cyanosis or clubbing BACK: No deformity, no pressure ulcer. GENITOURINARY: No dysuria or hematuria Vital Sign (Last 12 Hours) 01/11/24 01/11/24 01/11/24 03:55 07:00 11:29 Temp 98.4 98.1 98.1 Pulse 54 58 65 Resp 19 18 18 B/P (MAP) 122/53 135/59 122/63 Pulse Ox 92 97 93 O2 Delivery Room Air Room Air Nasal Cannula O2 Flow Rate 3.0 FiO2 28 Intake & Output (last 24hrs) 01/10/24 01/10/24 01/11/24 15:00 23:00 07:00 Intake Total 240 ml 240 ml Output Total 800 ml 160 ml Balance 240 ml -560 ml -160 ml LABS: Laboratory: Test 01/11/24 04:42 Range/Units White Blood Count 6.1 4.8-10.8 K/uL Red Blood Count 3.58 L 4.50-6.20 MIL/uL Hemoglobin 11.2 L 14.0-18.0 g/dL Hematocrit 32.7 L 42-54 % Mean Corpuscular Volume 91.3 79-99 fL Mean Corpuscular Hemoglobin 31.3 27.0-33.0 pg Mean Corpuscular Hemoglobin Concent 34.3 32.0-36.0 g/dL Red Cell Distribution Width 14.8 11.0-15.5 % Platelet Count 123 L 130-400 K/uL Mean Platelet Volume 10.2 7.5-10.5 fL Immature Granulocyte % (Auto) 1.3 H 0-1 % Neutrophils (%) (Auto) 78.4 H 40.0-77.0 % Lymphocytes (%) (Auto) 9.7 L 21.0-51.0 % Monocytes (%) (Auto) 6.4 3.0-13.0 % Eosinophils (%) (Auto) 3.9 0.0-8.0 % Basophils (%) (Auto) 0.3 0.0-5.0 % Neutrophils # (Auto) 4.8 1.8-7.7 K/uL Lymphocytes # (Auto) 0.6 L 1.0-4.8 K/uL Monocytes # (Auto) 0.4 0.1-1.0 K/uL Eosinophils # (Auto) 0.24 0.00-0.70 K/uL Basophils # (Auto) 0.02 0.00-0.20 K/uL Absolute Immature Granulocyte (auto 0.08 0-1 K/uL Nucleated Red Blood Cells 0.0 0.0-0.19 % Sodium Level 133 L 136-145 mmol/L Potassium Level 3.9 3.5-5.1 mmol/L Chloride Level 96 L 101-111 mmol/L Carbon Dioxide Level 28 21-32 mmol/L Blood Urea Nitrogen 46 H 7-18 mg/dL Creatinine 8.3 *H 0.5-1.3 mg/dL Glomerular Filtration Rate Calc 6 >90 mL/min Random Glucose 112 H 70-105 mg/dL Total Calcium 7.8 L 8.5-10.1 mg/dL Magnesium Level 1.70 L 1.80-2.40 mg/dL Total Bilirubin 0.8 0.2-1.0 mg/dL Aspartate Amino Transf (AST/SGOT) 33 10-37 U/L Alanine Aminotransferase (ALT/SGPT) 34 12-78 U/L Alkaline Phosphatase 573 H 50-136 U/L Total Protein 5.3 L 6.0-8.3 g/dL Albumin 2.0 L 3.5-5.0 g/dL ASSESSMENT: Acute on chronic renal failure, status post dialysis catheter placement and new onset dialysis. Urinary tract infection. Hyperkalemia, resolved. Metabolic acidosis. Generalized weakness. Hypertension. History abdominal aortic aneurysm. Debility. PLAN: Continue cefepime. Continue dialysis as recommended by Nephrology. Cardiology has been consulted. Continue antihypertensive. We will monitor electrolytes. We will have Physical therapy evaluate and treat. This case was reviewed and discussed with my supervising physician and the above assessment and plan was formulated and agreed upon. ATTESTATION BY PHYSICIAN I have seen and examined the patient. I reviewed the documentation, medical decision making, and treatment plan as noted by the mid-level provider above. I agree with the findings and plan of care. IAN GOODRICH MD, MIRTA L [facility] Jan 11, 2024 14:07
[2024-01-12] VITALS (10 sets, daily range): BP systolic 122–153; BP diastolic 67–93; PULSE 60–68; RESP 16–20; TEMP 97.9–98.5; O2SAT 92–95
[2024-01-12 05:13] LABS: BASOPHILS # (AUTO) 0.03 K/uL (0.00-0.20); BASOPHILS % (AUTO) 0.4 % (0.0-5.0); EOSINOPHILS # (AUTO) 0.34 K/uL (0.00-0.70); EOSINOPHILS % (AUTO) 4.6 % (0.0-8.0); HEMATOCRIT 34.4 % (42-54); LYMPHOCYTES % (AUTO) 13.7 % (21.0-51.0); MEAN CORPUSCULAR HEMOGLOBIN 30.4 pg (27.0-33.0); MEAN CORPUSCULAR HGB CONC 32.6 g/dL (32.0-36.0); MEAN CORPUSCULAR VOLUME 93.5 fL (79-99); MONOCYTES # (AUTO) 0.5 K/uL (0.1-1.0); NEUTROPHILS # (AUTO) 5.5 K/uL (1.8-7.7); PLATELET COUNT (AUTO) 146 K/uL (130-400); RED BLOOD CELL COUNT(AUTO) 3.68 MIL/uL (4.50-6.20); WHITE BLOOD COUNT (AUTO) 7.5 K/uL (4.8-10.8)
[2024-01-12 05:35] LABS: MAGNESIUM 1.7 mg/dL (1.80-2.40); POTASSIUM 4.3 mmol/L (3.5-5.1)
[2024-01-12 05:44] LABS: CREATININE 10.3 mg/dL (0.5-1.3)
--- NOTE | 2024-01-12 16:42 | PN ---
INFECTIOUS DISEASE PROGRESS NOTE Date of Service: Jan 12, 2024 SUBJECTIVE: Patient was seen and examined at bedside in room 303. Patient is awake, alert and oriented x 3. Patient has received three dialysis treatment and will be undergoing a PermCath placement tomorrow. BUN is 61 and creatinine of 10.3 today. Patient remains afebrile, temperature is 98.1. Continues on cefepime IV. visiting bedside. Will continue to monitor patient. PHYSICAL EXAM EYES: Anicteric. Pupils equal and reactive. HENT: No oral thrush seen, moist Oral mucosa. NECK: Supple, no JVD or thyromegaly. LUNGS: Good air entry. No rales, no rhonchi. CARDIOVASCULAR: S1, S2 regular. No murmur heard. ABDOMEN: Soft, non tender, bowel sounds present, no organomegaly. CENTRAL NERVOUS SYSTEM: Awake, alert, oriented x 3. SKIN: No rashes, no swelling. LYMPHATICS: No peripheral lymphadenopathy MUSCULOSKELETAL: No joint swelling, erythema or tenderness. EXTREMITIES: No cyanosis or clubbing BACK: No deformity, no pressure ulcer. GENITOURINARY: No dysuria or hematuria. Vital Sign (Last 12 Hours) 01/12/24 01/12/24 01/12/24 01/12/24 07:19 07:25 08:00 11:49 Temp 97.9 98.1 Pulse 62 65 64 Resp 20 18 B/P (MAP) 127/83 122/76 Pulse Ox 93 93 92 O2 Delivery N/A Room Air Room Air Room Air* Room Air O2 Flow Rate 0 FiO2 21 21 21 Intake & Output (last 24hrs) 01/11/24 01/11/24 01/12/24 14:59 22:59 06:59 Intake Total 875 ml Output Total 130 ml Balance 875 ml -130 ml LABS: Laboratory: Test 01/12/24 03:35 01/11/24 04:42 Range/Units White Blood Count 7.5 4.8-10.8 K/uL Red Blood Count 3.68 L 4.50-6.20 MIL/uL Hemoglobin 11.2 L 14.0-18.0 g/dL Hematocrit 34.4 L 42-54 % Mean Corpuscular Volume 93.5 79-99 fL Mean Corpuscular Hemoglobin 30.4 27.0-33.0 pg Mean Corpuscular Hemoglobin Concent 32.6 32.0-36.0 g/dL Red Cell Distribution Width 15.0 11.0-15.5 % Platelet Count 146 130-400 K/uL Mean Platelet Volume 10.5 7.5-10.5 fL Immature Granulocyte % (Auto) 1.3 H 0-1 % Neutrophils (%) (Auto) 74.0 40.0-77.0 % Lymphocytes (%) (Auto) 13.7 L 21.0-51.0 % Monocytes (%) (Auto) 6.0 3.0-13.0 % Eosinophils (%) (Auto) 4.6 0.0-8.0 % Basophils (%) (Auto) 0.4 0.0-5.0 % Neutrophils # (Auto) 5.5 1.8-7.7 K/uL Lymphocytes # (Auto) 1.0 1.0-4.8 K/uL Monocytes # (Auto) 0.5 0.1-1.0 K/uL Eosinophils # (Auto) 0.34 0.00-0.70 K/uL Basophils # (Auto) 0.03 0.00-0.20 K/uL Absolute Immature Granulocyte (auto 0.10 0-1 K/uL Nucleated Red Blood Cells 0.0 0.0-0.19 % Sodium Level 135 L 136-145 mmol/L Potassium Level 4.3 3.5-5.1 mmol/L Chloride Level 96 L 101-111 mmol/L Carbon Dioxide Level 26 21-32 mmol/L Blood Urea Nitrogen 61 H 7-18 mg/dL Creatinine 10.3 *H 0.5-1.3 mg/dL Glomerular Filtration Rate Calc 5 >90 mL/min Random Glucose 102 70-105 mg/dL Total Calcium 8.3 L 8.5-10.1 mg/dL Magnesium Level 1.70 L 1.80-2.40 mg/dL Total Bilirubin 0.8 0.2-1.0 mg/dL Aspartate Amino Transf (AST/SGOT) 33 10-37 U/L Alanine Aminotransferase (ALT/SGPT) 34 12-78 U/L Alkaline Phosphatase 573 H 50-136 U/L Total Protein 5.3 L 6.0-8.3 g/dL Albumin 2.0 L 3.5-5.0 g/dL ASSESSMENT: Acute on chronic renal failure, status post dialysis catheter placement and new onset dialysis. Urinary tract infection. Hyperkalemia, resolved. Metabolic acidosis. Generalized weakness. Hypertension. History abdominal aortic aneurysm. Debility. PLAN: Continue cefepime. Continue dialysis as recommended by Nephrology. Cardiology has been consulted. Continue antihypertensive. We will monitor electrolytes. Continue Physical therapy. Patient is pending a Perma Cath placement for tomorrow. This case was reviewed and discussed with my supervising physician and the above assessment and plan was formulated and agreed upon. ATTESTATION BY PHYSICIAN I have seen and examined the patient. I reviewed the documentation, medical decision making, and treatment plan as noted by the mid-level provider above. I agree with the findings and plan of care. IAN GOODRICH MD, MIRTA L [facility] Jan 12, 2024 16:42
--- NOTE | 2024-01-12 20:27 | PN ---
NEPHROLOGY FOLLOWUP NOTE INTERVAL HISTORY: The patient was evaluated this morning with nursing staff. 130 mL reported urine output for past 24-hour period. The patient did tolerate hemodialysis initiation treatments. Otherwise, denies any fevers, chills, chest pain, palpitations, focal weakness. PHYSICAL EXAMINATION: CURRENT VITAL SIGNS: Temperature 98.4, pulse 63, blood pressure 128/69, respiratory rate is 16, satting 92% on room air. GENERAL: The patient is resting comfortably. He is alert. He is oriented. CARDIAC: Regular rhythm and rate. CHEST: Clear. ABDOMEN: Soft, nontender. EXTREMITIES: No edema. LABORATORY DATA: White count is 7.5, hemoglobin 11.6, hematocrit 34.4, platelet count is 146. Sodium is 135, potassium is 4.3, chloride 96, bicarbonate is 26, BUN is 61, creatinine is 10.3, calcium is 8.3. Magnesium is 1.7. ASSESSMENT: * Acute on chronic kidney injury. * Underlying chronic kidney disease, stage 3. * Acute hyperkalemia. * Hyponatremia. * Presumed acidosis. * Diarrhea. * Anemia. * Thrombocytopenia. * History of coronary artery disease. * Ischemic cardiomyopathy. * Left renal artery stenosis. PLAN: * Acute on chronic kidney injury with no evidence of renal recovery at this time. The patient will continue routine dialysis every Friday, and Friday during hospitalization. Have contacted case management for outpatient dialysis placement for continued dialysis while monitoring renal recovery. Avoid nephrotoxins. Renally dose all medications. * Hyperkalemia. Continue with dialysis, renal diet. Trend labs. * Hyponatremia. Continue with fluid restriction and routine dialysis. * Acidosis. Continue with dialysis. Lab studies are stable at this time. TID: [id number] RECEIPT: [id number]
[2024-01-13] VITALS (26 sets, daily range): BP systolic 114–176; BP diastolic 59–110; PULSE 52–89; RESP 16–20; TEMP 97.5–98; O2SAT 93–94
[2024-01-13] MEDS: PROMETHAZINE HCL 25 MG/ML 1ML AMPULE IM ONE (00:37)
[2024-01-13 04:49] LABS: BASOPHILS # (AUTO) 0.04 K/uL (0.00-0.20); BASOPHILS % (AUTO) 0.4 % (0.0-5.0); EOSINOPHILS # (AUTO) 0.06 K/uL (0.00-0.70); EOSINOPHILS % (AUTO) 0.6 % (0.0-8.0); HEMATOCRIT 32.3 % (42-54); IMMATURE GRANULOCYTE ABSOLUTE 0.11 K/uL (0-1); LYMPHOCYTES # (AUTO) 0.5 K/uL (1.0-4.8); MEAN CORPUSCULAR HEMOGLOBIN 31.3 pg (27.0-33.0); MEAN CORPUSCULAR HGB CONC 33.7 g/dL (32.0-36.0); MEAN CORPUSCULAR VOLUME 92.8 fL (79-99); MONOCYTES # (AUTO) 0.3 K/uL (0.1-1.0); MONOCYTES % (AUTO) 3.1 % (3.0-13.0); NEUTROPHILS # (AUTO) 9.6 K/uL (1.8-7.7); NEUTROPHILS % (AUTO) 89.9 % (40.0-77.0); PLATELET COUNT (AUTO) 129 K/uL (130-400); RED BLOOD CELL COUNT(AUTO) 3.48 MIL/uL (4.50-6.20); RED CELL DISTRIBUTION WIDTH 14.8 % (11.0-15.5); WHITE BLOOD COUNT (AUTO) 10.7 K/uL (4.8-10.8)
[2024-01-13 04:58] LABS: MAGNESIUM 1.8 mg/dL (1.80-2.40); POTASSIUM 4.3 mmol/L (3.5-5.1)
[2024-01-13 04:59] LABS: INR 1.34 (0.85-1.15); PROTHROMBIN TIME 14.2 SEC (9.6-11.6)
[2024-01-13 05:00] LABS: PARTIAL THROMBOPLASTIN TIME 30.5 SEC (26.3-35.5)
[2024-01-13] MEDS ORDERED: IOHEXOL-350 50ML VIAL IV ONE (10:57)
[2024-01-13] MEDS ORDERED: LIDOCAINE HCL 400MG/20ML VIAL ONE (10:57)
[2024-01-13] MEDS ORDERED: HEParin-NS 1,000 UNIT/500 ML 500 ML IV ONE (10:58)
[2024-01-13] MEDS ORDERED: HEParin 1,000 UNIT VIAL ONE (11:30)
--- NOTE | 2024-01-13 12:00 | PR ---
CLINICAL HISTORY: End-stage renal disease, 83-year-old male. TECHNIQUE: After obtaining informed consent, the patient was placed on the angiography table and prepped and draped in the usual sterile fashion. A electrical technician image was obtained. Local anesthesia was achieved with 1% lidocaine solution. A wire was advanced through the existing catheter, which was removed over a wire. Attention was turned to the right chest wall. A small skin incision was made. A tunnel was created between the incision site and the venotomy site. Catheter was passed through tunnel. Using peel-away sheath, the catheter tip was advanced into the right [facility] under fluoroscopic observation. Lumens were flushed demonstrated patency. The catheter was secured into place, covered with clean sterile dressing and final images demonstrated the catheter tip in good position. FINDINGS: Patent right internal jugular vein. IMPRESSION: Uncomplicated temporary to tunneled hemodialysis catheter placement with fluoroscopic guidance. Thank you for allowing us to participate in the care of your patient. The catheter is ready for immediate use. TID: [id number] RECEIPT: [id number]
--- NOTE | 2024-01-13 13:51 | HMCIMG ---
CHEST 1VW HISTORY: Congestion COMPARISON: 01/08/2024 FINDINGS: A frontal projection of the chest was obtained. Mild bilateral pulmonary infiltrates are seen may be related to mild pulmonary vascular congestion with possible superimposed pneumonitis. Poststernotomy changes are seen. The heart is enlarged. Degenerative changes of the thoracolumbar spine are present. Pacemaker is seen entering from the left. Aortic calcifications are seen. IMPRESSION: 1. Mild bilateral pulmonary infiltrates are seen may be related to mild pulmonary vascular congestion with possible superimposed pneumonitis.
--- NOTE | 2024-01-13 16:24 | PN ---
INFECTIOUS DISEASE PROGRESS NOTE Date of Service: Jan 13, 2024 SUBJECTIVE: Patient was seen and examined at bedside in room 303. Patient is awake, alert and oriented x 3. Patient is status post right PermCath placement this morning. BUN is 22 and creatinine of 12.0 today. Patient will be dialyzed dialyzed for 2 hours today. Per dialysis no report patient has been having bleeding from the PermCath site. We will monitor patient for bleeding and plan to discharge patient tomorrow. Per case management report patient has been arranged for outpatient hemodialysis and has an appointment with [facility] tomorrow at 1:30 a.m. We will remove Presley catheter today. Patient remains af ebrile, temperature is 97.5. Continues on cefepime IV. Will continue to monitor patient. PHYSICAL EXAM EYES: Anicteric. Pupils equal and reactive. HENT: No oral thrush seen, moist Oral mucosa. NECK: Supple, no JVD or thyromegaly. LUNGS: Good air entry. No rales, no rhonchi. CARDIOVASCULAR: S1, S2 regular. No murmur heard. ABDOMEN: Soft, non tender, bowel sounds present, no organomegaly. CENTRAL NERVOUS SYSTEM: Awake, alert, oriented x 3. SKIN: No rashes, no swelling. LYMPHATICS: No peripheral lymphadenopathy MUSCULOSKELETAL: No joint swelling, erythema or tenderness. EXTREMITIES: No cyanosis or clubbing BACK: No deformity, no pressure ulcer. GENITOURINARY: No dysuria or hematuria. Vital Sign (Last 12 Hours) 01/13/24 01/13/24 01/13/24 01/13/24 08:00 08:20 13:10 13:30 Temp 97.5 97.5 97.5 Pulse 59 62 65 67 Resp 19 18 16 16 B/P (MAP) 154/83 161/65 148/91 Pulse Ox 93 96 O2 Delivery Nasal Cannula N/Cannula Low lpm Nasal Cannula Nasal Cannula O2 Flow Rate 2.0 2.0 3.0 3.0 FiO2 28 01/13/24 01/13/24 01/13/24 01/13/24 13:45 14:00 14:15 14:30 Pulse 69 63 75 64 Resp 16 16 16 16 B/P (MAP) 148/101 144/95 174/99 176/97 Pulse Ox 93 95 96 94 O2 Delivery Nasal Cannula Nasal Cannula Nasal Cannula Nasal Cannula O2 Flow Rate 3.0 3.0 3.0 3.0 01/13/24 01/13/24 01/13/24 01/13/24 14:45 15:00 15:15 15:30 Pulse 65 60 58 73 Resp 16 16 16 16 B/P (MAP) 160/101 167/99 168/74 163/89 Pulse Ox 95 96 95 96 O2 Delivery Nasal Cannula Nasal Cannula Nasal Cannula Nasal Cannula O2 Flow Rate 3.0 3.0 3.0 3.0 01/13/24 01/13/24 15:33 15:45 Temp 97.5 97.5 Pulse 66 Resp 16 B/P (MAP) 171/68 Pulse Ox 96 O2 Delivery Nasal Cannula O2 Flow Rate 3.0 Intake & Output (last 24hrs) 01/12/24 01/12/24 01/13/24 15:00 23:00 07:00 Intake Total 875 ml Balance 875 ml LABS: Laboratory: Test 01/13/24 04:21 01/13/24 00:52 Range/Units White Blood Count 10.7 4.8-10.8 K/uL Red Blood Count 3.48 L 4.50-6.20 MIL/uL Hemoglobin 10.9 L 14.0-18.0 g/dL Hematocrit 32.3 L 42-54 % Mean Corpuscular Volume 92.8 79-99 fL Mean Corpuscular Hemoglobin 31.3 27.0-33.0 pg Mean Corpuscular Hemoglobin Concent 33.7 32.0-36.0 g/dL Red Cell Distribution Width 14.8 11.0-15.5 % Platelet Count 129 L 130-400 K/uL Mean Platelet Volume 10.2 7.5-10.5 fL Immature Granulocyte % (Auto) 1.0 0-1 % Neutrophils (%) (Auto) 89.9 H 40.0-77.0 % Lymphocytes (%) (Auto) 5.0 L 21.0-51.0 % Monocytes (%) (Auto) 3.1 3.0-13.0 % Eosinophils (%) (Auto) 0.6 0.0-8.0 % Basophils (%) (Auto) 0.4 0.0-5.0 % Neutrophils # (Auto) 9.6 H 1.8-7.7 K/uL Lymphocytes # (Auto) 0.5 L 1.0-4.8 K/uL Monocytes # (Auto) 0.3 0.1-1.0 K/uL Eosinophils # (Auto) 0.06 0.00-0.70 K/uL Basophils # (Auto) 0.04 0.00-0.20 K/uL Absolute Immature Granulocyte (auto 0.11 0-1 K/uL Nucleated Red Blood Cells 0.0 0.0-0.19 % Prothrombin Time 14.2 H 9.6-11.6 SEC Prothromb Time International Ratio 1.34 H 0.85-1.15 Activated Partial Thromboplast Time 30.5 26.3-35.5 SEC Sodium Level 132 L 136-145 mmol/L Potassium Level 4.3 3.5-5.1 mmol/L Chloride Level 94 L 101-111 mmol/L Carbon Dioxide Level 23 21-32 mmol/L Blood Urea Nitrogen 72 H 7-18 mg/dL Creatinine 12.0 *H 0.5-1.3 mg/dL Glomerular Filtration Rate Calc 4 >90 mL/min Random Glucose 151 H 70-105 mg/dL Total Calcium 8.1 L 8.5-10.1 mg/dL Magnesium Level 1.80 1.80-2.40 mg/dL Whole Blood Glucose 181 H 70-110 MG/DL ASSESSMENT: Acute on chronic renal failure, status post dialysis catheter placement and new onset dialysis. Urinary tract infection. Hyperkalemia, resolved. Metabolic acidosis. Generalized weakness. Hypertension. History abdominal aortic aneurysm. Debility. PLAN: Continue cefepime. Continue dialysis as recommended by Nephrology. Cardiology has been consulted. Continue antihypertensive. We will monitor electrolytes. Continue physical therapy. Will remove Presley today. We will monitor for bleeding from the Perma Cath site and plan to discharge tomorrow. This case was reviewed and discussed with my supervising physician and the above assessment and plan was formulated and agreed upon. ATTESTATION BY PHYSICIAN I have seen and examined the patient. I reviewed the documentation, medical decision making, and treatment plan as noted by the mid-level provider above. I agree with the findings and plan of care. IAN GOODRICH MD, [facility] Jan 13, 2024 16:24
[2024-01-14] VITALS (23 sets, daily range): BP systolic 111–158; BP diastolic 63–93; PULSE 50–79; RESP 16–19; TEMP 97.6–98.1; O2SAT 84–99
[2024-01-14 03:54] LABS: BASOPHILS # (AUTO) 0.03 K/uL (0.00-0.20); BASOPHILS % (AUTO) 0.4 % (0.0-5.0); EOSINOPHILS # (AUTO) 0.19 K/uL (0.00-0.70); EOSINOPHILS % (AUTO) 2.4 % (0.0-8.0); HEMATOCRIT 31.1 % (42-54); LYMPHOCYTES # (AUTO) 1.2 K/uL (1.0-4.8); LYMPHOCYTES % (AUTO) 14.5 % (21.0-51.0); MEAN CORPUSCULAR HEMOGLOBIN 30.9 pg (27.0-33.0); MEAN CORPUSCULAR HGB CONC 33.4 g/dL (32.0-36.0); MEAN CORPUSCULAR VOLUME 92.3 fL (79-99); MONOCYTES # (AUTO) 0.6 K/uL (0.1-1.0); MONOCYTES % (AUTO) 7.1 % (3.0-13.0); NEUTROPHILS % (AUTO) 74.3 % (40.0-77.0); PLATELET COUNT (AUTO) 141 K/uL (130-400); RED BLOOD CELL COUNT(AUTO) 3.37 MIL/uL (4.50-6.20); RED CELL DISTRIBUTION WIDTH 14.8 % (11.0-15.5)
[2024-01-14 04:14] LABS: MAGNESIUM 1.8 mg/dL (1.80-2.40); POTASSIUM 4.8 mmol/L (3.5-5.1)
[2024-01-14 04:28] LABS: CREATININE 10.6 mg/dL (0.5-1.3)
--- NOTE | 2024-01-14 12:38 | PN ---
INFECTIOUS DISEASE PROGRESS NOTE Date of Service: Jan 14, 2024 SUBJECTIVE: Patient was seen and examined at bedside in room 303. Patient is awake, alert and oriented x 3. Patient is status post right PermCath placement day #1. Very minimal bleeding observe on the site. Patient reported that he is not feeling well to be discharged today. Unable to explain what symptoms he is feeling. reported that he is having some jerking episodes. Patient denying chest pain. Denying shortness of breath, patient however remains on oxygen via nasal cannula at 2 liters/minute. A 6 minutes walk was obtained and patient did not pass. Patient and family in agreement for SNF placement for close monitoring. Case management evaluated patient and they have chosen to go to [facility] if approved. Patient is afebrile, temperature is 97.7. Continues on cefepime IV. Will continue to monitor patient. PHYSICAL EXAM EYES: Anicteric. Pupils equal and reactive. HENT: No oral thrush seen, moist Oral mucosa. NECK: Supple, no JVD or thyromegaly. LUNGS: Good air entry. No rales, no rhonchi. CARDIOVASCULAR: S1, S2 regular. No murmur heard. ABDOMEN: Soft, non tender, bowel sounds present, no organomegaly. CENTRAL NERVOUS SYSTEM: Awake, alert, oriented x 3. SKIN: No rashes, no swelling. LYMPHATICS: No peripheral lymphadenopathy MUSCULOSKELETAL: No joint swelling, erythema or tenderness. EXTREMITIES: No cyanosis or clubbing BACK: No deformity, no pressure ulcer. GENITOURINARY: No dysuria or hematuria. Vital Sign (Last 12 Hours) 01/14/24 01/14/24 01/14/24 01/14/24 04:24 07:36 07:52 11:20 Temp 97.7 97.9 97.7 Pulse 63 62 61 74 Resp 19 18 16 17 B/P (MAP) 126/70 137/66 111/64 Pulse Ox 95 99 95 O2 Delivery Nasal Cannula N/Cannula Low lpm Nasal Cannula Nasal Cannula O2 Flow Rate 3.0 3.0 2.0 2.0 FiO2 32 01/14/24 11:57 Pulse 64 79 77 Resp 18 18 18 FiO2 21 21 28 Intake & Output (last 24hrs) 01/13/24 01/13/24 01/14/24 15:00 23:00 07:00 Output Total 1500 ml Balance -1500 ml LABS: Laboratory: Test 01/14/24 03:42 01/13/24 04:21 01/13/24 00:52 Range/Units White Blood Count 8.0 # 4.8-10.8 K/uL Red Blood Count 3.37 L 4.50-6.20 MIL/uL Hemoglobin 10.4 L 14.0-18.0 g/dL Hematocrit 31.1 L 42-54 % Mean Corpuscular Volume 92.3 79-99 fL Mean Corpuscular Hemoglobin 30.9 27.0-33.0 pg Mean Corpuscular Hemoglobin Concent 33.4 32.0-36.0 g/dL Red Cell Distribution Width 14.8 11.0-15.5 % Platelet Count 141 130-400 K/uL Mean Platelet Volume 10.0 7.5-10.5 fL Immature Granulocyte % (Auto) 1.3 H 0-1 % Neutrophils (%) (Auto) 74.3 40.0-77.0 % Lymphocytes (%) (Auto) 14.5 L 21.0-51.0 % Monocytes (%) (Auto) 7.1 3.0-13.0 % Eosinophils (%) (Auto) 2.4 0.0-8.0 % Basophils (%) (Auto) 0.4 0.0-5.0 % Neutrophils # (Auto) 6.0 1.8-7.7 K/uL Lymphocytes # (Auto) 1.2 1.0-4.8 K/uL Monocytes # (Auto) 0.6 0.1-1.0 K/uL Eosinophils # (Auto) 0.19 0.00-0.70 K/uL Basophils # (Auto) 0.03 0.00-0.20 K/uL Absolute Immature Granulocyte (auto 0.10 0-1 K/uL Nucleated Red Blood Cells 0.0 0.0-0.19 % Sodium Level 134 L 136-145 mmol/L Potassium Level 4.8 3.5-5.1 mmol/L Chloride Level 96 L 101-111 mmol/L Carbon Dioxide Level 25 21-32 mmol/L Blood Urea Nitrogen 58 H 7-18 mg/dL Creatinine 10.6 *H 0.5-1.3 mg/dL Glomerular Filtration Rate Calc 4 >90 mL/min Random Glucose 96 70-105 mg/dL Total Calcium 8.5 8.5-10.1 mg/dL Magnesium Level 1.80 1.80-2.40 mg/dL Prothrombin Time 14.2 H 9.6-11.6 SEC Prothromb Time International Ratio 1.34 H 0.85-1.15 Activated Partial Thromboplast Time 30.5 26.3-35.5 SEC Whole Blood Glucose 181 H 70-110 MG/DL ASSESSMENT: Acute on chronic renal failure, status post dialysis catheter placement and new onset dialysis. Urinary tract infection. Hyperkalemia, resolved. Metabolic acidosis. Generalized weakness. Hypertension. History abdominal aortic aneurysm. Debility. PLAN: Patient did not pass a 6 minutes walk. His management evaluation for referral to SNF. Continue cefepime. Continue dialysis as recommended by Nephrology. Cardiology has been consulted. Continue antihypertensive. We will monitor electrolytes. Continue physical therapy. This case was reviewed and discussed with my supervising physician and the above assessment and plan was formulated and agreed upon. ATTESTATION BY PHYSICIAN I have seen and examined the patient. I reviewed the documentation, medical decision making, and treatment plan as noted by the mid-level provider above. I agree with the findings and plan of care. IAN GOODRICH MD, [facility] Jan 14, 2024 12:38
[2024-01-15 03:59] VITALS: BP 134/76; PULSE 49; RESP 20; TEMP 98.3
[2024-01-15 07:30] VITALS: PULSE 82; RESP 18; O2SAT 91
[2024-01-15 08:00] VITALS: BP 141/87; PULSE 50; RESP 18; TEMP 98.4; O2SAT 93
[2024-01-15 10:03] LABS: HEMATOCRIT 32.3 % (42-54); MEAN CORPUSCULAR HEMOGLOBIN 31.4 pg (27.0-33.0); MEAN CORPUSCULAR HGB CONC 33.1 g/dL (32.0-36.0); MEAN CORPUSCULAR VOLUME 94.7 fL (79-99); RED BLOOD CELL COUNT(AUTO) 3.41 MIL/uL (4.50-6.20); RED CELL DISTRIBUTION WIDTH 14.7 % (11.0-15.5); WHITE BLOOD COUNT (AUTO) 9.7 K/uL (4.8-10.8)
[2024-01-15 10:26] LABS: ALBUMIN 2.2 g/dL (3.5-5.0); BILIRUBIN,TOTAL 0.7 mg/dL (0.2-1.0); POTASSIUM 4.2 mmol/L (3.5-5.1); TOTAL PROTEIN, SERUM 5.8 g/dL (6.0-8.3)
[2024-01-15 10:32] LABS: CREATININE 9.8 mg/dL (0.5-1.3)
[2024-01-15 12:04] VITALS: BP 139/73; PULSE 51; RESP 20; TEMP 98.2
--- NOTE | 2024-01-15 17:14 | PN ---
NEPHROLOGY FOLLOWUP NOTE INTERVAL HISTORY: The patient was evaluated this morning, has tolerated hemodialysis initiation. Continues with poor appetite, weakness. Denies any fevers, chills, chest pain, palpitations, abdominal pain, or focal weakness. PHYSICAL EXAMINATION: CURRENT VITAL SIGNS: Temperature is 97.7, pulse 63, blood pressure 126/70, respiratory rate is 19, satting 95% on 3 liters nasal cannula. GENERAL: The patient is resting comfortably. He is alert, answering questions appropriately. CARDIAC: Regular rhythm and rate. CHEST: Clear. ABDOMEN: Soft. EXTREMITIES: No edema. LABORATORY DATA: Sodium 134, potassium is 4.8, chloride 96, bicarbonate is 25, BUN is 58, creatinine is 10.6, calcium is 8.5. White count is 8.0, hemoglobin 10.4, hematocrit 31.1, platelet count is 141. ASSESSMENT: * Acute on chronic kidney injury. * Underlying chronic kidney disease stage 3. * Acute hyperkalemia. * Hyponatremia. * Presumed acidosis. * Diarrhea. * Anemia. * Thrombocytopenia. * History of coronary artery disease. * Ischemic cardiomyopathy. * Left renal artery stenosis. PLAN: * Acute on chronic kidney injury with no evidence of renal recovery. At this time, the patient will continue with dialysis. Plan for dialysis today as the patient will be discharged on Friday, Friday and Friday schedule. 2-hour treatment, 2k bath, 2.5 calcium bath, UF 1 liter as tolerated, 300 blood flow rate, 600 dialysis flow rate and we will continue routine dialysis every Friday, Friday, Friday during hospitalization to follow outpatient prescription. * Hyperkalemia with improved lab studies, 2k bath today and we will trend, renal diet. * Hyponatremia. Fluid restriction. Continue routine dialysis. * Presumed acidosis, has corrected with hemodialysis initiation. * Anemia. Continue to trend labs. TID: [id number] RECEIPT: [id number]
--- NOTE | 2024-01-15 20:54 | DS ---
Discharge Summary Hospital Course Final Discahrge Diagnosis: Acute on chronic renal failure, status post dialysis catheter placement and new onset dialysis. Urinary tract infection. Hyperkalemia, resolved. Metabolic acidosis. Generalized weakness. Hypertension. History abdominal aortic aneurysm. Debility. PLAN: NATALIE IZQUIERDO Jan 15, 2024 20:53
== END 2024-01-15 15:45 | DRG 683 ==
LOC: EDH 10:10 → EDHIP 13:15 → 3AH 20:59
PROVIDERS: ADMIT Internal Medicine Infectious Disease; ATTEND Internal Medicine Infectious Disease
PROC: 5A1D70Z Performance of Urinary Filtration, Intermittent, Less than 6 Hours Per Day (ICD-10-PCS; principal; 2024-01-08)
PROC: 0JH Subcutaneous Tissue and Fascia, Insertion (ICD-10-PCS; 2024-01-08)
PROC: 02HV33Z Insertion of Infusion Device into Superior Vena Cava, Percutaneous Approach (ICD-10-PCS; 2024-01-08)
PROC: B548ZZA Ultrasonography of Superior Vena Cava, Guidance (ICD-10-PCS; 2024-01-08)
PROC: 5A1D70Z Performance of Urinary Filtration, Intermittent, Less than 6 Hours Per Day (ICD-10-PCS; 2024-01-09)
PROC: 5A1D70Z Performance of Urinary Filtration, Intermittent, Less than 6 Hours Per Day (ICD-10-PCS; 2024-01-10)
PROC: 5A09357 Assistance with Respiratory Ventilation, Less than 24 Consecutive Hours, Continuous Positive Airway Pressure (ICD-10-PCS; 2024-01-10)
PROC: 5A09357 Assistance with Respiratory Ventilation, Less than 24 Consecutive Hours, Continuous Positive Airway Pressure (ICD-10-PCS; 2024-01-11)
PROC: 5A1D70Z Performance of Urinary Filtration, Intermittent, Less than 6 Hours Per Day (ICD-10-PCS; 2024-01-13)
PROC: 05HY33Z Insertion of Infusion Device into Upper Vein, Percutaneous Approach (ICD-10-PCS; 2024-01-13)
PROC: 5A1D70Z Performance of Urinary Filtration, Intermittent, Less than 6 Hours Per Day (ICD-10-PCS; 2024-01-14)
DX: N17.9 Acute kidney failure, unspecified (principal); E87.1 Hypo-osmolality and hyponatremia; N39.0 Urinary tract infection, site not specified; I24.1 Dressler's syndrome; E87.29 Other acidosis; I12.0 Hypertensive chronic kidney disease with stage 5 chronic kidney disease or end stage renal disease; Z20.822 Contact with and (suspected) exposure to COVID-19; N18.6 End stage renal disease; E87.5 Hyperkalemia; I71.40 Abdominal aortic aneurysm, without rupture, unspecified; N18.30 Chronic kidney disease, stage 3 unspecified; D64.9 Anemia, unspecified; D69.6 Thrombocytopenia, unspecified; I70.1 Atherosclerosis of renal artery; I25.5 Ischemic cardiomyopathy; N40.0 Benign prostatic hyperplasia without lower urinary tract symptoms; E78.00 Pure hypercholesterolemia, unspecified; I25.10 Atherosclerotic heart disease of native coronary artery without angina pectoris; G47.33 Obstructive sleep apnea (adult) (pediatric); K21.9 Gastro-esophageal reflux disease without esophagitis; I73.9 Peripheral vascular disease, unspecified; Z82.49 Family history of ischemic heart disease and other diseases of the circulatory system; Z85.820 Personal history of malignant melanoma of skin; Z86.73 Personal history of transient ischemic attack (TIA), and cerebral infarction without residual deficits; I25.2 Old myocardial infarction; Z99.2 Dependence on renal dialysis; Z86.79 Personal history of other diseases of the circulatory system; Z87.19 Personal history of other diseases of the digestive system; Z87.891 Personal history of nicotine dependence; Z95.1 Presence of aortocoronary bypass graft; Z95.810 Presence of automatic (implantable) cardiac defibrillator; Z88.8 Allergy status to other drugs, medicaments and biological substances; Z90.49 Acquired absence of other specified parts of digestive tract
CPT/HCPCS: 36415; 36556; 36581; 71045; 74176; 77001; 80048; 80053; 80061; 80076; 81001; 82040; 82306; 82550; 82565; 82607; 82728; 82948; 83036; 83540; 83550; 83605; 83735; 84145; 84484; 84520; 85014; 85018; 85025; 85027; 85610; 85730; 86701; 86704; 86706; 86803; 87040; 87086; 87340; 87390; 87426; 87804; 90935; 93005; 94660; 94760; 96365; 96366; 96368; 96375; 99291; C1750; C1752; G0378; J0612; J0692; J0696; J1644; J1815; J2405; J2550; J3490; J7030; J7042; J7070; Q9967; C1894